=== PATIENT | female | born 1970 | race Caucasian/White ===

== ENCOUNTER 2018-07-10 16:03 | Inpatient (IN) | payer MEDICAID, SELFPAY ==
[2018-07-10] VITALS (11 sets, daily range): BP systolic 137–154; BP diastolic 78–96; PULSE 79–97; RESP 16–20; TEMP 36.6–36.9; O2SAT 94–99; BMI 26.1
--- NOTE | 2018-07-10 16:48 | PCM.HP.STD ---
<Thuan Boston - Last Filed: 07/10/18 16:48> Problem List (1) Alcohol withdrawal Status: Acute (2) Alcoholism Status: Chronic (3) HTN (hypertension) Status: Chronic (4) Hepatitis C Status: Chronic (5) Anxiety Status: Chronic (6) Nicotine abuse Status: Chronic History of Present Illness Date of Admission: 07/10/18 Chief Complaint: alcohol withdrawal The patient is a 48 year old F with pmhx of alcoholism, htn, hepatitis C, nicotine abuse, anxiety, who presents to the hospital medical stabilization program in alcohol withdrawal requesting help with detox. She drinks 15-30 ice beers per day. Last drink was around 4 pm last evening. Withdrawal symptoms currently include, restlessness, anxiety, nausea, diarrhea, hot/cold flashes, skin crawling, visual and auditory hallucinations (seeing clowns hearing trains). Hx of withdrawal seizures, ICU stays during withdrawal. She last went through detox 39 days ago in [place] - started drinking because she was hanging out with the wrong people. She started drinking age 22 after her was murdered. Smokes 1 ppd and requests patch. Denies other drug use. [] Past Medical History Past Medical History (Chronic Problems): Chronic Problems Alcoholism (Chronic) HTN (hypertension) (Chronic) Hepatitis C (Chronic) Anxiety (Chronic) Nicotine abuse (Chronic) Allergies cefaclor [From Ceclor] Allergy (Verified 07/10/18 15:44) swelling/rash Penicillins [PCN] Allergy (Verified 07/10/18 15:44) Rash sulfamethoxazole [From Bactrim] Allergy (Verified 07/10/18 15:44) swelling/rash trimethoprim [From Bactrim] Allergy (Verified 07/10/18 15:44) swelling/rash codeine Adverse Reaction (Verified 07/10/18 15:44) Nausea/Vom/Diarrhea propoxyphene Adverse Reaction (Verified 07/10/18 15:44) Nausea/Vom/Diarrhea Home Medications: Ambulatory Orders Medication Instructions Recorded Clonidine HCl [Catapres] 0.1 mg PO TID 07/10/18 Escitalopram Oxalate [Lexapro] 10 mg PO DAILY 07/10/18 Pantoprazole Sodium [Protonix] 40 mg PO DAILY 07/10/18 Surgical History: appendectomy, cholecystectomy, hysterectomy, rotator cuff repair, - - right wrist Psychiatric History: Anxiety 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 Denies: Chills, Fever, Weight Change HEENT: Denies: Head Aches, Sinus Congestion, Sinus Drainage Cardiovascular: Denies: Chest Pain, Palpitations Respiratory: Denies: Cough, Shortness of breath at rest, Sputum production Gastrointestinal: Reports: Diarrhea, Nausea. Denies: Abdominal Pain, Vomiting Genitourinary: Denies: Dysuria Musculoskeletal: Denies: Joint Pain, Joint Tenderness Skin: Denies: Rash, Wounds Neurological: Reports: Tremor. Denies: Focal weakness, Headaches, Numbness, Tingling Psychiatric: Reports: Anxiety, - - hallucinations auditory and visual. Denies: Depression, Homicidal Ideations, Suicidal Ideations Hematologic/ Lymphatic: Denies: Easy Bruising, Easy Bleeding VTE Information - Inpt Only VTE Present on Admission: No VTE Mechan Device Prophylaxis: None VTE Pharm Prophylaxis ordered?: No Reason prophylaxis not ordered:: Procedure Not Indicated Patient Problems: Active and Suspected Problems Alcohol withdrawal (Acute) - Physical Exam General: Alert, Oriented x3, Cooperative HEENT: Atraumatic, PERRLA, EOMI, Normocephalic Neck: Supple, No JVD, Negative Carotid Bruits Lungs: Clear to auscultation, Normal air movement Cardiovascular: Regular rate, No murmurs Abdomen: Bowel Sounds Present, Soft, Non Tender Extremities: No edema, Capillary Refill Less than 3 Seconds Skin: No rashes, No breakdown Musculoskeletal: No Tenderness to Palpation of Joints or Extremities Neurological: Cranial nerves II-XII grossly intact, - - tremulous, asterixis Psych/Mental Status: Normal Affect, Appropriate, Anxious, Alert and oriented to time, place, person, mood and affect Vital Signs Temp Pulse Resp BP Pulse Ox 98.4 F 97 20 H 154/95 H 99 07/10/18 15:25 07/10/18 15:25 07/10/18 15:25 07/10/18 15:25 07/10/18 15:25 Oxygen Delivery Method Room Air Weight: 161 lb 13.109 oz Body Mass Index (BMI) 26.1 Assessment/Plan All Active Problems Alcohol withdrawal (Acute) 1. Acute alcohol withdrawal - severely tremulous, heavy alcoholism, hx of withdrawal seizures, currently with auditory and visual hallucinations. She will be transferred to PCU, seizure precautions, IV ativan, cardiac monitoring. Check ammonia. Add IV thiamine. Provide MVI, folate. -Drinks 15-30 ice beers per day -alcoholic since 22 after murdered -39 days since last detox in [place] -last drink about 4pm last night -continue home protonix - she states she does not know why she takes this 2. Hx Hepatitis C - mild LFT elevations 3. Nicotine abuse - requests patch. 1 ppd smoker 4. Anxiety - home meds DVT ppx: SCDs This patient was seen by Thuan Boston PA-C under the supervision of Dr. Landrum. <Klarissa Landrum E - Last Filed: 07/10/18 17:19> History of Present Illness The patient is a 48 year old F [] Past Medical History Allergies cefaclor [From Ceclor] Allergy (Verified 07/10/18 15:44) swelling/rash Penicillins [PCN] Allergy (Verified 07/10/18 15:44) Rash sulfamethoxazole [From Bactrim] Allergy (Verified 07/10/18 15:44) swelling/rash trimethoprim [From Bactrim] Allergy (Verified 07/10/18 15:44) swelling/rash codeine Adverse Reaction (Verified 07/10/18 15:44) Nausea/Vom/Diarrhea propoxyphene Adverse Reaction (Verified 07/10/18 15:44) Nausea/Vom/Diarrhea - Physical Exam Vital Signs Temp Pulse Resp BP Pulse Ox 98.4 F 97 20 H 154/95 H 99 07/10/18 15:25 07/10/18 15:25 07/10/18 15:25 07/10/18 15:25 07/10/18 15:25 Oxygen Delivery Method Room Air Weight: 161 lb 13.109 oz Body Mass Index (BMI) 26.1 Assessment/Plan Hospitalist note: I am seeing this patient in conjunction with Thuan Boston. I independently seen and examined the patient. History and physical and laboratory data from the outside facility reviewed and I agree with the above admission and treatment plan. Patient was transferred from [place] [facility] for acute alcohol withdrawal for medical stabilization. Patient drinks anywhere 15-18 beers daily and her last drink was yesterday evening. Her presenting symptoms were restlessness, and anxiety associated with significant hand tremors as well as hot and cold flashes and those symptoms started last night but got worse this morning. She complained of diarrhea, 2-4 times daily, loose stool without blood. She has history of alcohol abuse with history of alcohol withdrawal seizure 2 months ago and she was admitted to the intensive care unit according to the patient for severe alcohol withdrawal and she was in coma according to her. She is not taking any antiseizure medications. She has a history of hypertension and she has been on clonidine. She has history of hepatitis C and according to the patient, she never got treated for it. At this time, patient is very anxious, restless, tremulous. Her blood pressure slightly elevated, no tachycardia, other vitals are stable. Routine blood work from the outside reviewed as below. She is being admitted for severe alcohol withdrawal. - Physical Exam General: Alert, Oriented x3, Cooperative, restless, tremulous. HEENT: Atraumatic, PERRLA, EOMI. Neck: Supple, No JVD, Negative Carotid Bruits, Trachea Midline, Thyroid Normal. Lungs: Clear to auscultation, Normal air movement, No rhonchi, No wheeze, No rales. Cardiovascular: Regular rate, Regular Rhythm, Normal S1, Normal S2, PMI Normal. Abdomen: Bowel Sounds Present, Soft, Non Tender, Non-Distended, No Hepato-splenomegaly. Extremities: No clubbing, No cyanosis, No edema Skin: No rashes, No breakdown Neurological: Neuro grossly intact Laboratory data: CBC: WBC is 5.56, hemoglobin 14.9, platelet count is 1 73,000. Pro time 12.5, INR is 1. BMP: Sodium 140, potassium 3.8, chloride 104, BUN 7, creatinine 0.80, calcium 8.9 mg/dL. LFT: ALT 104, AST 133, alkaline phosphatase 81, lipase 284. Urine drug screen was negative. Blood alcohol level was 74.3. Serum test was negative. Assessment and plan: #1 severe alcohol withdrawal: With past history of alcohol withdrawal seizure in addition to history of admission to ICU because of severe alcohol withdrawal that required sedation. At this time, patient is anxious, restless, tremors. She received 1 dose of Ativan p.o. at [facility] and she mentioned that it did not make any difference. She is slightly hypertensive, heart rate stable. Plan: Admit to PCU, cardiac monitoring, seizure precautions, IV Ativan PRN for seizure, CIWA protocol, IV Ativan as needed, IV thiamine and folic acid supplement, multivitamins, PRN methocarbamol, Bentyl, Catapres, Vistaril, trazodone nightly. #2 hypertension: Blood pressure slightly elevated, continue clonidine, start IV hydralazine PRN. #3 other chronic medical problems: Stable, continue current medications as above. This note was generated with [employer] dictation software. It may contain incorrect words, spelling, and punctuation that were not noted in checking the note before signing. Code Visit Inpatient E&M: 81509 Init Hosp L3
--- NOTE | 2018-07-10 16:53 | HP.PCM_ITS ---
<Thuan Boston - Last Filed: 07/10/18 16:48> Problem List (1) Alcohol withdrawal Status: Acute (2) Alcoholism Status: Chronic (3) HTN (hypertension) Status: Chronic (4) Hepatitis C Status: Chronic (5) Anxiety Status: Chronic (6) Nicotine abuse Status: Chronic History of Present Illness Date of Admission: 07/10/18 Chief Complaint: alcohol withdrawal The patient is a 48 year old F with pmhx of alcoholism, htn, hepatitis C, nicotine abuse, anxiety, who presents to the hospital medical stabilization program in alcohol withdrawal requesting help with detox. She drinks 15-30 ice beers per day. Last drink was around 4 pm last evening. Withdrawal symptoms currently include, restlessness, anxiety, nausea, diarrhea, hot/cold flashes, skin crawling, visual and auditory hallucinations (seeing clowns hearing trains). Hx of withdrawal seizures, ICU stays during withdrawal. She last went through detox 39 days ago in [place] - started drinking because she was hanging out with the wrong people. She started drinking age 22 after her was murdered. Smokes 1 ppd and requests patch. Denies other drug use. [] Past Medical History Past Medical History (Chronic Problems): Chronic Problems Alcoholism (Chronic) HTN (hypertension) (Chronic) Hepatitis C (Chronic) Anxiety (Chronic) Nicotine abuse (Chronic) Allergies cefaclor [From Ceclor] Allergy (Verified 07/10/18 15:44) swelling/rash Penicillins [PCN] Allergy (Verified 07/10/18 15:44) Rash sulfamethoxazole [From Bactrim] Allergy (Verified 07/10/18 15:44) swelling/rash trimethoprim [From Bactrim] Allergy (Verified 07/10/18 15:44) swelling/rash codeine Adverse Reaction (Verified 07/10/18 15:44) Nausea/Vom/Diarrhea propoxyphene Adverse Reaction (Verified 07/10/18 15:44) Nausea/Vom/Diarrhea Home Medications: Ambulatory Orders Medication Instructions Recorded Clonidine HCl [Catapres] 0.1 mg PO TID 07/10/18 Escitalopram Oxalate [Lexapro] 10 mg PO DAILY 07/10/18 Pantoprazole Sodium [Protonix] 40 mg PO DAILY 07/10/18 Surgical History: appendectomy, cholecystectomy, hysterectomy, rotator cuff repair, - - right wrist Psychiatric History: Anxiety 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 Denies: Chills, Fever, Weight Change HEENT: Denies: Head Aches, Sinus Congestion, Sinus Drainage Cardiovascular: Denies: Chest Pain, Palpitations Respiratory: Denies: Cough, Shortness of breath at rest, Sputum production Gastrointestinal: Reports: Diarrhea, Nausea. Denies: Abdominal Pain, Vomiting Genitourinary: Denies: Dysuria Musculoskeletal: Denies: Joint Pain, Joint Tenderness Skin: Denies: Rash, Wounds Neurological: Reports: Tremor. Denies: Focal weakness, Headaches, Numbness, Tingling Psychiatric: Reports: Anxiety, - - hallucinations auditory and visual. Denies: Depression, Homicidal Ideations, Suicidal Ideations Hematologic/ Lymphatic: Denies: Easy Bruising, Easy Bleeding VTE Information - Inpt Only VTE Present on Admission: No VTE Mechan Device Prophylaxis: None VTE Pharm Prophylaxis ordered?: No Reason prophylaxis not ordered:: Procedure Not Indicated Patient Problems: Active and Suspected Problems Alcohol withdrawal (Acute) - Physical Exam General: Alert, Oriented x3, Cooperative HEENT: Atraumatic, PERRLA, EOMI, Normocephalic Neck: Supple, No JVD, Negative Carotid Bruits Lungs: Clear to auscultation, Normal air movement Cardiovascular: Regular rate, No murmurs Abdomen: Bowel Sounds Present, Soft, Non Tender Extremities: No edema, Capillary Refill Less than 3 Seconds Skin: No rashes, No breakdown Musculoskeletal: No Tenderness to Palpation of Joints or Extremities Neurological: Cranial nerves II-XII grossly intact, - - tremulous, asterixis Psych/Mental Status: Normal Affect, Appropriate, Anxious, Alert and oriented to time, place, person, mood and affect Vital Signs Temp Pulse Resp BP Pulse Ox 98.4 F 97 20 H 154/95 H 99 07/10/18 15:25 07/10/18 15:25 07/10/18 15:25 07/10/18 15:25 07/10/18 15:25 Oxygen Delivery Method Room Air Weight: 161 lb 13.109 oz Body Mass Index (BMI) 26.1 Assessment/Plan All Active Problems Alcohol withdrawal (Acute) 1. Acute alcohol withdrawal - severely tremulous, heavy alcoholism, hx of withdrawal seizures, currently with auditory and visual hallucinations. She will be transferred to PCU, seizure precautions, IV ativan, cardiac monitoring. Check ammonia. Add IV thiamine. Provide MVI, folate. -Drinks 15-30 ice beers per day -alcoholic since 22 after murdered -39 days since last detox in [place] -last drink about 4pm last night -continue home protonix - she states she does not know why she takes this 2. Hx Hepatitis C - mild LFT elevations 3. Nicotine abuse - requests patch. 1 ppd smoker 4. Anxiety - home meds DVT ppx: SCDs This patient was seen by Thuan Boston PA-C under the supervision of Dr. Landrum. <Klarissa Landrum E - Last Filed: 07/10/18 17:19> History of Present Illness The patient is a 48 year old F [] Past Medical History Allergies cefaclor [From Ceclor] Allergy (Verified 07/10/18 15:44) swelling/rash Penicillins [PCN] Allergy (Verified 07/10/18 15:44) Rash sulfamethoxazole [From Bactrim] Allergy (Verified 07/10/18 15:44) swelling/rash trimethoprim [From Bactrim] Allergy (Verified 07/10/18 15:44) swelling/rash codeine Adverse Reaction (Verified 07/10/18 15:44) Nausea/Vom/Diarrhea propoxyphene Adverse Reaction (Verified 07/10/18 15:44) Nausea/Vom/Diarrhea - Physical Exam Vital Signs Temp Pulse Resp BP Pulse Ox 98.4 F 97 20 H 154/95 H 99 07/10/18 15:25 07/10/18 15:25 07/10/18 15:25 07/10/18 15:25 07/10/18 15:25 Oxygen Delivery Method Room Air Weight: 161 lb 13.109 oz Body Mass Index (BMI) 26.1 Assessment/Plan Hospitalist note: I am seeing this patient in conjunction with Thuan Boston. I independently seen and examined the patient. History and physical and laboratory data from the outside facility reviewed and I agree with the above admission and treatment plan. Patient was transferred from [place] ER for acute alcohol withdrawal for medical stabilization. Patient drinks anywhere 15-18 beers daily and her last drink was yesterday evening. Her presenting symptoms were restlessness, and anxiety associated with significant hand tremors as well as hot and cold flashes and those symptoms started last night but got worse this morning. She complained of diarrhea, 2-4 times daily, loose stool without blood. She has history of alcohol abuse with history of alcohol withdrawal seizure 2 months ago and she was admitted to the intensive care unit according to the patient for severe alcohol withdrawal and she was in coma according to her. She is not taking any antiseizure medications. She has a history of hypertension and she has been on clonidine. She has history of hepatitis C and according to the patient, she never got treated for it. At this time, patient is very anxious, restless, tremulous. Her blood pressure slightly elevated, no tachycardia, other vitals are stable. Routine blood work from the outside reviewed as below. She is being admitted for severe alcohol withdrawal. - Physical Exam General: Alert, Oriented x3, Cooperative, restless, tremulous. HEENT: Atraumatic, PERRLA, EOMI. Neck: Supple, No JVD, Negative Carotid Bruits, Trachea Midline, Thyroid Normal. Lungs: Clear to auscultation, Normal air movement, No rhonchi, No wheeze, No rales. Cardiovascular: Regular rate, Regular Rhythm, Normal S1, Normal S2, PMI Normal. Abdomen: Bowel Sounds Present, Soft, Non Tender, Non-Distended, No Hepato- splenomegaly. Extremities: No clubbing, No cyanosis, No edema Skin: No rashes, No breakdown Neurological: Neuro grossly intact Laboratory data: CBC: WBC is 5.56, hemoglobin 14.9, platelet count is 1 73,000. Pro time 12.5, INR is 1. BMP: Sodium 140, potassium 3.8, chloride 104, BUN 7, creatinine 0.80, calcium 8.9 mg/dL. LFT: ALT 104, AST 133, alkaline phosphatase 81, lipase 284. Urine drug screen was negative. Blood alcohol level was 74.3. Serum test was negative. Assessment and plan: #1 severe alcohol withdrawal: With past history of alcohol withdrawal seizure in addition to history of admission to ICU because of severe alcohol withdrawal that required sedation. At this time, patient is anxious, restless, tremors. She received 1 dose of Ativan p.o. at [facility] and she mentioned that it did not make any difference. She is slightly hypertensive, heart rate stable. Plan: Admit to PCU, cardiac monitoring, seizure precautions, IV Ativan PRN for seizure, CIWA protocol, IV Ativan as needed, IV thiamine and folic acid supplement, multivitamins, PRN methocarbamol, Bentyl, Catapres, Vistaril, trazodone nightly. #2 hypertension: Blood pressure slightly elevated, continue clonidine, start IV hydralazine PRN. #3 other chronic medical problems: Stable, continue current medications as above. This note was generated with [employer] dictation software. It may contain incorrect words, spelling, and punctuation that were not noted in checking the note before signing. Code Visit Inpatient E&M: 96858 Init Hosp L3
[2018-07-10] MEDS: cloNIDine HCl 0.1 MG Tablet PO ×2 (16:57→23:03)
[2018-07-10] MEDS: LORazepam 1 MG Tablet PO (16:57)
[2018-07-10] MEDS: Methocarbamol 750 MG Tablet PO (16:57)
[2018-07-10] MEDS: Dicyclomine 10 MG Capsule 20 MG PO (16:57)
[2018-07-10] MEDS: chlordiazePOXIDE 25 MG Capsule 50 MG PO (17:06)
--- NOTE | 2018-07-10 18:12 | NURSING ---
Report given to Tania RON in PCU at this time.
[2018-07-10] MEDS: LORazepam 2 MG/ML Syringe IV ×3 (18:29→23:51)
[2018-07-10] MEDS: 0.9% NaCl Peripheral Flush Adult/Peds IV ×6 (21:20→23:54)
[2018-07-10] MEDS: traZODone 50 MG Tablet PO (23:03)
[2018-07-11] VITALS (19 sets, daily range): BP systolic 133–153; BP diastolic 87–98; PULSE 73–98; RESP 16–20; TEMP 36.4–36.8; O2SAT 93–98
[2018-07-11] MEDS: 0.9% NaCl Peripheral Flush Adult/Peds IV ×10 (01:50→20:17)
[2018-07-11] MEDS: LORazepam 2 MG/ML Syringe IV ×4 (01:50→20:17)
--- NOTE | 2018-07-11 07:00 | NURSING ---
pt sleeping w/eyes close, respers even/easy. not roused at this time
[2018-07-11] MEDS: cloNIDine HCl 0.1 MG Tablet PO ×3 (07:01→21:36)
--- NOTE | 2018-07-11 07:59 | PCM.PROGNOTE ---
Patient Problems: Active and Suspected Problems Alcohol withdrawal (Acute) Subjective: Chief complaint: Follow-up after admission for acute severe alcohol withdrawal. Patient seen and examined. No acute events overnight. She reported mild improvement of her symptoms, shakiness and tremors slightly improved but she thinks that she is still having significant symptoms of withdrawal. Her vital signs are stable. - Physical Exam General: Alert, Oriented x3, Cooperative, - - Minimally anxious, tremulous, improved compared to yesterday. HEENT: Atraumatic, PERRLA, EOMI, Normocephalic Oral: Moist Mucosa, No Gingival or Mucosal Lesions/ Ulcerations Neck: Supple, No JVD, Negative Carotid Bruits, Trachea Midline, Thyroid Normal Size and Texture Lungs: Clear to auscultation, Normal air movement, No rhonchi, No wheeze, No rales Cardiovascular: Regular rate, Regular Rhythm, Normal S1, Normal S2, PMI Normal Abdomen: Bowel Sounds Present, Soft, Non Tender, Non-Distended, No Hepato-splenomegaly Extremities: No clubbing, No cyanosis, No edema Skin: No rashes, No breakdown Lymphatic: No Cervical, Supraclavicular, or Inguinal Adenopathy Neurological: Cranial nerves II-XII grossly intact, Neuro grossly intact Psych/Mental Status: Normal Affect, Appropriate, Anxious, Alert and oriented to time, place, person, mood and affect Vital Signs Temp Pulse Resp BP Pulse Ox 97.7 F L 73 16 151/94 H 97 07/11/18 06:53 07/11/18 07:15 07/11/18 06:53 07/11/18 06:53 07/11/18 06:50 Oxygen Delivery Method Room Air Weight: 161 lb 13.109 oz Body Mass Index (BMI) 26.1 Intake and Output for Last 24 Hours 07/09/18 07/10/18 07/11/18 23:59 23:59 23:59 Intake Total 360 / 360 Balance 360 / 360 Laboratory Tests Past 24 Hrs 07/10/18 17:33 Ammonia 31.0 Medical Necessity - Tobacco Use Smoking Status: Current every day smoker Tobacco Use: Cigarettes Assessment/Plan All Active Problems Alcohol withdrawal (Acute) This is a 48 years old female patient directly admitted from outside facility for acute severe alcohol withdrawal. #1 severe alcohol withdrawal: With past history of alcohol withdrawal seizure in addition to history of admission to ICU because of severe alcohol withdrawal that required sedation. She is on IV and p.o. Ativan according to see her protocol, on thiamine and folic acid supplement. Routine blood work that was done at the outside facility yesterday reviewed and was unremarkable. Blood alcohol level was 47.3. Urine drug screen was negative. Liver transaminases were slightly elevated secondary to chronic hepatitis C. Also, she is on PRN Catapres, Bentyl, Vistaril, Zofran and trazodone. Patient reported mild improvement of her symptoms. Plan to continue same treatment. #2 hypertension: Blood pressure still in the range of 140s to 150s, continue clonidine, continue IV hydralazine PRN. #3 chronic hepatitis C: LFT revealed mild elevation of liver transaminases. Patient will need follow-up with infectious disease as outpatient. #4 tobacco abuse: Continue NicoDerm patch. #5 anxiety: Continue Lexapro. #6 DVT prophylaxis: Low risk patient, no prophylaxis indicated. This note was generated with [employer] dictation software. It may contain incorrect words, spelling, and punctuation that were not noted in checking the note before signing. Code Visit Inpatient E&M: 90084 Subs Hosp L2
--- NOTE | 2018-07-11 08:04 | PN_ITS ---
Patient Problems: Active and Suspected Problems Alcohol withdrawal (Acute) Subjective: Chief complaint: Follow-up after admission for acute severe alcohol withdrawal. Patient seen and examined. No acute events overnight. She reported mild improvement of her symptoms, shakiness and tremors slightly improved but she thinks that she is still having significant symptoms of withdrawal. Her vital signs are stable. - Physical Exam General: Alert, Oriented x3, Cooperative, - - Minimally anxious, tremulous, improved compared to yesterday. HEENT: Atraumatic, PERRLA, EOMI, Normocephalic Oral: Moist Mucosa, No Gingival or Mucosal Lesions/ Ulcerations Neck: Supple, No JVD, Negative Carotid Bruits, Trachea Midline, Thyroid Normal Size and Texture Lungs: Clear to auscultation, Normal air movement, No rhonchi, No wheeze, No rales Cardiovascular: Regular rate, Regular Rhythm, Normal S1, Normal S2, PMI Normal Abdomen: Bowel Sounds Present, Soft, Non Tender, Non-Distended, No Hepato- splenomegaly Extremities: No clubbing, No cyanosis, No edema Skin: No rashes, No breakdown Lymphatic: No Cervical, Supraclavicular, or Inguinal Adenopathy Neurological: Cranial nerves II-XII grossly intact, Neuro grossly intact Psych/Mental Status: Normal Affect, Appropriate, Anxious, Alert and oriented to time, place, person, mood and affect Vital Signs Temp Pulse Resp BP Pulse Ox 97.7 F L 73 16 151/94 H 97 07/11/18 06:53 07/11/18 07:15 07/11/18 06:53 07/11/18 06:53 07/11/18 06:50 Oxygen Delivery Method Room Air Weight: 161 lb 13.109 oz Body Mass Index (BMI) 26.1 Intake and Output for Last 24 Hours 07/09/18 07/10/18 07/11/18 23:59 23:59 23:59 Intake Total 360 / 360 Balance 360 / 360 Laboratory Tests Past 24 Hrs 07/10/18 17:33 Ammonia 31.0 Medical Necessity - Tobacco Use Smoking Status: Current every day smoker Tobacco Use: Cigarettes Assessment/Plan All Active Problems Alcohol withdrawal (Acute) This is a 48 years old female patient directly admitted from outside facility for acute severe alcohol withdrawal. #1 severe alcohol withdrawal: With past history of alcohol withdrawal seizure in addition to history of admission to ICU because of severe alcohol withdrawal that required sedation. She is on IV and p.o. Ativan according to see her protocol, on thiamine and folic acid supplement. Routine blood work that was done at the outside facility yesterday reviewed and was unremarkable. Blood al cohol level was 47.3. Urine drug screen was negative. Liver transaminases were slightly elevated secondary to chronic hepatitis C. Also, she is on PRN Catapres, Bentyl, Vistaril, Zofran and trazodone. Patient reported mild improvement of her symptoms. Plan to continue same treatment. #2 hypertension: Blood pressure still in the range of 140s to 150s, continue clonidine, continue IV hydralazine PRN. #3 chronic hepatitis C: LFT revealed mild elevation of liver transaminases. Patient will need follow-up with infectious disease as outpatient. #4 tobacco abuse: Continue NicoDerm patch. #5 anxiety: Continue Lexapro. #6 DVT prophylaxis: Low risk patient, no prophylaxis indicated. This note was generated with [employer] dictation software. It may contain incorrect words, spelling, and punctuation that were not noted in checking the note before signing. Code Visit Inpatient E&M: 11380 Subs Hosp L2
[2018-07-11] MEDS: Acetaminophen 500 MG Tablet PO ×3 (08:33→20:16)
[2018-07-11] MEDS: Multivitamins,Therapeutic Tablet 1 TABLET PO (08:33)
[2018-07-11] MEDS: Methocarbamol 750 MG Tablet PO ×2 (10:15→16:04)
[2018-07-11] MEDS: hydrOXYzine PAM 25 MG Capsule 50 MG PO ×2 (10:15→17:58)
[2018-07-11] MEDS: Escitalopram Oxalate 10 MG Tablet PO (10:15)
[2018-07-11] MEDS: Pantoprazole Sodium 40 MG Tablet PO (10:15)
[2018-07-11] MEDS: LORazepam 1 MG Tablet 2 MG PO ×3 (11:59→22:56)
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
[2018-07-11] MEDS: Ondansetron ODT 4 MG Tablet PO (20:17)
[2018-07-11] MEDS: traZODone 50 MG Tablet PO (21:36)
[2018-07-12] VITALS (12 sets, daily range): BP systolic 114–154; BP diastolic 69–91; PULSE 70–94; RESP 16–20; TEMP 36.4–36.6; O2SAT 93–96
[2018-07-12] MEDS: Acetaminophen 500 MG Tablet PO ×3 (02:16→10:53)
[2018-07-12] MEDS: LORazepam 1 MG Tablet 2 MG PO ×2 (02:16→06:11)
[2018-07-12] MEDS: Methocarbamol 750 MG Tablet PO (02:16)
[2018-07-12] MEDS: Ondansetron ODT 4 MG Tablet PO (02:17)
[2018-07-12] MEDS: hydrOXYzine PAM 25 MG Capsule 50 MG PO ×3 (04:33→18:10)
[2018-07-12] MEDS: Dicyclomine 10 MG Capsule 20 MG PO (04:33)
[2018-07-12] MEDS: cloNIDine HCl 0.1 MG Tablet PO ×2 (05:21→22:32)
[2018-07-12] MEDS: 0.9% NaCl Peripheral Flush Adult/Peds IV (06:14)
--- NOTE | 2018-07-12 07:46 | NURSING ---
Patient removed own IV during night- unable to obtain new site. Pt removed tele and refuses to allow staff to reapply at shift change. Pt set off bed alarm x2 within 10 minutes- telling staff she was going to step outside to smoke. Educated on policy regarding leaving the unit, which is a AMA discharge. Pt verbalized understanding. Pt returned to bed. Pt found walking in hallway after doctor in to see her. Notified this RN that she was leaving and that the doctor discharged her. Notfied pt that this was not the case. Pt would not listen to this RN and ripped off tape and nicotene patch, becoming definant as this RN attempted to tell pt that she was not d/c'ed. Dr. Willett notified and went in with this RN to see pt. Dr. Willett notified pt- and pt then compliant and allowed this RN to assist her with putting gown back on and returning to bed to eat breakfast. Dr. Landrum gave new order to decrease amount of ativan. Notified Dr. Landrum that pt has no IV access- ativan ordered PO. Pt requested that she have sleeping pill at night. Dr. Landrum ordered same. Pt able to answer questions asked- a&ox3- but will then speak nonsense, asking this RN how long she has worked at [employer] and how she could apply. Pt does not appear to be thinking clearly - confirmed by what pt. is verbalizing.
--- NOTE | 2018-07-12 07:54 | PCM.PROGNOTE ---
Patient Problems: Active and Suspected Problems Alcohol withdrawal (Acute) Subjective: Chief complaint: Follow-up after admission for acute severe alcohol withdrawal. Patient seen and examined. No acute events overnight. This morning, patient seemed sleepy, confused and probably overmedicated with Ativan. She has no more shakiness or and tremors. Her vital signs are stable. - Physical Exam General: Alert, Cooperative, No apparent distress, - - Minimally sleepy HEENT: Atraumatic, PERRLA, EOMI Oral: Moist Mucosa, No Gingival or Mucosal Lesions/ Ulcerations Neck: Supple, No JVD, Negative Carotid Bruits, Trachea Midline, Thyroid Normal Size and Texture Lungs: Clear to auscultation, Normal air movement, No rhonchi, No wheeze, No rales Cardiovascular: Regular rate, Regular Rhythm, Normal S1, Normal S2, PMI Normal Abdomen: Bowel Sounds Present, Soft, Non Tender, Non-Distended, No Hepato-splenomegaly Extremities: No clubbing, No cyanosis, No edema Skin: No rashes, No breakdown Lymphatic: No Cervical, Supraclavicular, or Inguinal Adenopathy Neurological: Cranial nerves II-XII grossly intact, Neuro grossly intact Psych/Mental Status: Normal Affect, Appropriate Vital Signs Temp Pulse Resp BP Pulse Ox 97.9 F 70 18 148/91 H 96 07/12/18 06:00 07/12/18 06:00 07/12/18 06:00 07/12/18 06:00 07/12/18 06:00 Oxygen Delivery Method Room Air Weight: 161 lb 13.109 oz Body Mass Index (BMI) 26.1 Intake and Output for Last 24 Hours 07/10/18 07/11/18 07/12/18 23:59 23:59 23:59 Intake Total 1983 540 / 540 Balance 1983 540 / 540 Medical Necessity - Tobacco Use Smoking Status: Current every day smoker Tobacco Use: Cigarettes Assessment/Plan All Active Problems Alcohol withdrawal (Acute) This is a 48 years old female patient directly admitted from outside facility for acute severe alcohol withdrawal. #1 severe alcohol withdrawal: She is on IV and p.o. Ativan as needed as per protocol as well as thiamine, folic acid and multivitamin supplement. Today, patient seemed to be overmedicated with Ativan. Vital signs are stable. She has no more obvious shakiness or hand tremors. Routine blood work that was done at the outside facility upon admission reviewed and was unremarkable. Blood alcohol level was 47.3. Urine drug screen was negative. Liver transaminases were slightly elevated secondary to chronic hepatitis C. plan: Decrease Ativan down to 1 mg p.o. nightly 2 hours as needed, start Ambien as needed for insomnia, continue other treatments. #2 hypertension: Blood pressure s under better control, continue clonidine, continue IV hydralazine PRN. #3 chronic hepatitis C: LFT revealed mild elevation of liver transaminases. Patient will need follow-up with infectious disease as outpatient. #4 tobacco abuse: Continue NicoDerm patch. #5 anxiety: Continue Lexapro. #6 DVT prophylaxis: Low risk patient, no prophylaxis indicated. This note was generated with [employer] dictation software. It may contain incorrect words, spelling, and punctuation that were not noted in checking the note before signing. Code Visit Inpatient E&M: 07723 Subs Hosp L2
--- NOTE | 2018-07-12 07:58 | PN_ITS ---
Patient Problems: Active and Suspected Problems Alcohol withdrawal (Acute) Subjective: Chief complaint: Follow-up after admission for acute severe alcohol withdrawal. Patient seen and examined. No acute events overnight. This morning, patient seemed sleepy, confused and probably overmedicated with Ativan. She has no more shakiness or and tremors. Her vital signs are stable. - Physical Exam General: Alert, Cooperative, No apparent distress, - - Minimally sleepy HEENT: Atraumatic, PERRLA, EOMI Oral: Moist Mucosa, No Gingival or Mucosal Lesions/ Ulcerations Neck: Supple, No JVD, Negative Carotid Bruits, Trachea Midline, Thyroid Normal Size and Texture Lungs: Clear to auscultation, Normal air movement, No rhonchi, No wheeze, No rales Cardiovascular: Regular rate, Regular Rhythm, Normal S1, Normal S2, PMI Normal Abdomen: Bowel Sounds Present, Soft, Non Tender, Non-Distended, No Hepato- splenomegaly Extremities: No clubbing, No cyanosis, No edema Skin: No rashes, No breakdown Lymphatic: No Cervical, Supraclavicular, or Inguinal Adenopathy Neurological: Cranial nerves II-XII grossly intact, Neuro grossly intact Psych/Mental Status: Normal Affect, Appropriate Vital Signs Temp Pulse Resp BP Pulse Ox 97.9 F 70 18 148/91 H 96 07/12/18 06:00 07/12/18 06:00 07/12/18 06:00 07/12/18 06:00 07/12/18 06:00 Oxygen Delivery Method Room Air Weight: 161 lb 13.109 oz Body Mass Index (BMI) 26.1 Intake and Output for Last 24 Hours 07/10/18 07/11/18 07/12/18 23:59 23:59 23:59 Intake Total 1983 540 / 540 Balance 1983 540 / 540 Medical Necessity - Tobacco Use Smoking Status: Current every day smoker Tobacco Use: Cigarettes Assessment/Plan All Active Problems Alcohol withdrawal (Acute) This is a 48 years old female patient directly admitted from outside facility for acute severe alcohol withdrawal. #1 severe alcohol withdrawal: She is on IV and p.o. Ativan as needed as per protocol as well as thiamine, folic acid and multivitamin supplement. Today, patient seemed to be overmedicated with Ativan. Vital signs are stable. She has no more obvious shakiness or hand tremors. Routine blood work that was done at the outside facility upon admission reviewed and was unremarkable. Blood alcohol level was 47.3. Urine drug screen was negative. Liver transaminases were slightly elevated secondary to chronic hepatitis C. plan: Decrease Ativan down to 1 mg p.o. nightly 2 hours as needed, start Ambien as needed for insomnia, continue other treatments. #2 hypertension: Blood pressure s under better control, continue clonidine, continue IV hydralazine PRN. #3 chronic hepatitis C: LFT revealed mild elevation of liver transaminases. Patient will need follow-up with infectious disease as outpatient. #4 tobacco abuse: Continue NicoDerm patch. #5 anxiety: Continue Lexapro. #6 DVT prophylaxis: Low risk patient, no prophylaxis indicated. This note was generated with [employer] dictation software. It may contain incorrect words, spelling, and punctuation that were not noted in checking the note before signing. Code Visit Inpatient E&M: 28008 Subs Hosp L2
[2018-07-12] MEDS: Escitalopram Oxalate 10 MG Tablet PO (10:47)
[2018-07-12] MEDS: Pantoprazole Sodium 40 MG Tablet PO (10:47)
[2018-07-12] MEDS: Multivitamins,Therapeutic Tablet 1 TABLET PO (10:47)
--- NOTE | 2018-07-12 13:26 | NEWVISION ---
pt out of bed and set off bed exit alarm, pt states she wants to do this at home, don't you think it's unfair how i got here-verbalized to pt that she was agreeable to come to [facility] for alcohol withdrawal-she asks where did my 2 friends go?-although staff has not seen any visitors in pt room today-pt assisted back to bed and bed exit set-encouarged pt to do deep breathing exercises and try to close eyes and relax-she does close her eyes and sleeps intermitently-nicolette she wakes, she is forgetful about what was recently discussed about safety and coming here for withdrawal
[2018-07-12] MEDS: LORazepam 1 MG Tablet PO ×4 (14:18→22:32)
[2018-07-12] MEDS: Folic Acid 1 MG Tablet PO (16:58)
[2018-07-12] MEDS: Thiamine Hydrochloride 100 MG Tablet 200 MG PO (16:58)
--- NOTE | 2018-07-12 18:53 | NURSING ---
Pt refused tele this shift-- doctor notified. Pt states, the rest of my body is falling apart, but my heart is fine. I do not need that.
[2018-07-12] MEDS: traZODone 50 MG Tablet PO (22:32)
[2018-07-13] VITALS (15 sets, daily range): BP systolic 97–136; BP diastolic 69–94; PULSE 74–90; RESP 12–18; TEMP 36.4–36.9; O2SAT 93–97; BMI 26.1
[2018-07-13] MEDS: LORazepam 1 MG Tablet PO ×8 (01:20→22:19)
[2018-07-13] MEDS: hydrOXYzine PAM 25 MG Capsule 50 MG PO (02:07)
[2018-07-13] MEDS: Folic Acid 1 MG Tablet PO (07:43)
[2018-07-13] MEDS: Multivitamins,Therapeutic Tablet 1 TABLET PO (07:44)
[2018-07-13] MEDS: Escitalopram Oxalate 10 MG Tablet PO (07:44)
[2018-07-13] MEDS: Thiamine Hydrochloride 100 MG Tablet 200 MG PO (07:44)
[2018-07-13] MEDS: Pantoprazole Sodium 40 MG Tablet PO (07:45)
--- NOTE | 2018-07-13 11:52 | PN_ITS ---
Patient Problems: Active and Suspected Problems Alcohol withdrawal (Acute) Subjective: Patient with continued hallucinations, tremors improved but still extremely confused. Patient only on Ativan, no IV access. Discussed with staff and given ongoing elevated C was scores at least 14 or above patient initiated on Librium taper although dosing decreased given patient easily sedate status. Patient denies fevers, chills, nausea, emesis, abdominal pain, chest pain or dyspnea. Objective: Physical Examination: General: Patient initially sleeping, awakens with some effort, once more alert able to answer some orientation questions but has had active ongoing hallucinations, specifically noting that she was seeing her mother who has been , remains cooperative, seated upright in bed in no apparent distress. Skin: normal color, turgor, no icterus, cyanosis. HEENT: AT/NC, EOMI, PERRLA, mildly dry MM. Lungs: CTA bilaterally, moderate effort, moderate decrease BL bases, no rales, ronchi or wheezing. Heart: Regular rate and rhythm; no gallop, rub audible. Abdomen: soft, NTTP, ND, normal BS. Extremities: no cyanosis, clubbing, or edema. Neurological: Patient initially sleeping, awakens with some effort, once more alert able to answer some orientation questions but has had active ongoing [place] llucinations, specifically noting that she was seeing her mother who has been , remains cooperative, seated upright in bed in no apparent distress, oriented x 3/4; cognitive function not baseline intact; pupils equally reactive to light and accomodation; cranial nerves II-XII grossly normal, moving all 4 extremities, no focal deficits, strength moderately globally decreased secondary to ongoing alcohol withdrawal symptoms. Psychiatric: affect appears flat, no acute evidence of depressive or anxiety feelings. Vitals/I&O's: Vital Signs Temp Pulse Resp BP Pulse Ox 97.8 F 89 12 135/77 H 94 07/13/18 09:46 07/13/18 09:46 07/13/18 09:46 07/13/18 09:46 07/13/18 09:46 Oxygen Delivery Method Room Air Weight: 161 lb 13.109 oz Body Mass Index (BMI) 26.1 Intake and Output for Last 24 Hours 07/11/18 07/12/18 07/13/18 23:59 23:59 23:59 Intake Total 1983 1640 / 1640 500 / 500 Balance 1983 1640 / 1640 500 / 500 Current Medications Acetaminophen (Tylenol) 500 mg PO Q4H PRN PRN PRN Reason: Temp > 100.4 F Last Admin: 07/12/18 10:53 Dose: 500 mg Clonidine (Catapres) 0.1 mg PO TID [facility] Last Admin: 07/13/18 06:53 Dose: Not Given Dicyclomine HCl (Bentyl) 20 mg PO Q6H PRN PRN PRN Reason: abdominal discomfort Last Admin: 07/12/18 04:33 Dose: 20 mg Escitalopram Oxalate (Lexapro) 10 mg PO DAILY [facility] Last Admin: 07/13/18 07:44 Dose: 10 mg Folic Acid (Folic Acid) 1 mg PO DAILY@0800 [facility] Last Admin: 07/13/18 07:43 Dose: 1 mg Hydroxyzine Pamoate (Vistaril Pamoate Capsule) 50 mg PO Q6H PRN PRN PRN Reason: Mild Anxiety (score 1/3) Last Admin: 07/13/18 02:07 Dose: 50 mg Lorazepam (Ativan) 1 mg PO Q2H PRN PRN PRN Reason: CIWA score > 8 but <15 Last Admin: 07/13/18 09:49 Dose: 1 mg Methocarbamol (Methocarbamol) 750 mg PO Q6H PRN PRN PRN Reason: Muscle Aches Last Admin: 07/12/18 02:16 Dose: 750 mg [facility] ([facility]itamin) [facility] Last Admin: 07/13/18 07:44 Dose: 1 tablet Nicotine (Nicoderm Cq (Pbkc)) 21 mg TRANSDERM. DAILY [facility] Last Admin: 07/13/18 07:44 Dose: 21 mg Ondansetron HCl (Zofran Odt) 4 mg PO Q6H PRN PRN PRN Reason: NAUSEA Last Admin: 07/12/18 02:17 Dose: 4 mg Pantoprazole Sodium (Protonix) 40 mg PO DAILY [facility] Last Admin: 07/13/18 07:45 Dose: 40 mg Sodium Chloride () 5 - 15 ml IV UD PRN PRN Reason: SALINE FLUSH Last Admin: 07/12/18 06:14 Dose: 10 ml Thiamine HCl (Vitamin B1) [facility] Last Admin: 07/13/18 07:44 Dose: 200 mg Trazodone HCl (Desyrel) 50 mg PO QHS [facility] Last Admin: 07/12/18 22:32 Dose: 50 mg Zolpidem Tartrate (Ambien (Generic)) 5 mg PO QHS PRN PRN PRN Reason: INSOMNIA Medical Necessity - Tobacco Use Smoking Status: Current every day smoker Tobacco Use: Cigarettes Assessment/Plan All Active Problems Alcohol withdrawal (Acute) The patient is a 48 y/o F w/ PMHx: Tobacco use, HTN, Chronic Hepatitis C, Anxiety and Depression, Chronic EtOH Abuse who presents to the [facility] on 07/10[facility]18 as direct admission for acute EtOH withdrawal. (1) Acute EtOH Withdrawal: Admitted to PCU, labs per OSH, given ongoing hallucinations, planned CT head to be cautious given EtOH abuse and possibility of unknown fall, will obtain CBC, CMP, mag and phos now, will initiate and continue on [facility] service protocol with taper course of librium instead of only CIWA oral ativan, as Catapres, Bentyl, Vistaril, IV fluids, IV antiemetics, Tylenol as needed for pain. [facility] consulted, as following completion of taper nearing will need plan for transition to next level of rehabilitation care. Maintain on CIWA protocol. (2) History of Hepatitis C, Chronic: Patient currently not candidate for hep C treatment currently as needs to be clean, sober x 6 months, documented attendance NA or AA meetings, counseling and ongoing negative drug screens. Once appropriate GI, ID to initiate. (3) Tobacco Abuse: Encouraged cessation, inpatient consultation per RT, NR if desired. (4) Hypertension: Continue home regimen including clonidine although given history alternate agent would be perhaps more appropriate, PRN hydralazine. (5) Anxiety and Depression: Continue home Lexapro regimen. (6) GERD: PPI. (7) DVT Prophylaxis: SCDs, lovenox. Code Visit Inpatient E&M: 04023 Subs Hosp L3
--- NOTE | 2018-07-13 11:55 | CASEMGMT ---
SW called [facility] and spoke with Laan Villa. They will attempt to talk with patient when able. Viviana COLEMAN MSW
--- NOTE | 2018-07-13 11:57 | NURSING ---
Dr. Shannon made aware pt does not have IV site at this time.
[2018-07-13] MEDS: cloNIDine HCl 0.1 MG Tablet PO ×2 (12:17→22:18)
[2018-07-13] MEDS: chlordiazePOXIDE 25 MG Capsule PO ×3 (12:19→23:36)
--- NOTE | 2018-07-13 13:56 | CT_ITS ---
STUDY: CT BRAIN WITHOUT CONTRAST REASON FOR EXAM: Female, 48 years old. Memory loss. Hallucinations. RADIATION DOSAGE (If Supplied By Facility): CTDIvol = ( 60.81 ) mGy, DLP = ( 998.67 ) mGycm TECHNIQUE: Transaxial CT imaging of the brain was performed without administration of intravenous contrast material. Individualized dose optimization techniques were used for this CT. COMPARISON: No relevant priors. FINDINGS: Normal soft tissue structures. Normal calvarium. Normal size ventricles and extra-axial spaces for the patient's age. Normal white matter tracts of the cerebral hemispheres. Questionable 6.4 mm lacunar infarct in the posterior left thalamus. Normal brainstem. Normal cerebellum. There is no intracranial hemorrhage. There are no findings of an acute ischemic infarction. Normal visualized paranasal sinuses. CT/Brain/Head without Contrast IMPRESSION: Possible 6.4 mm lacunar infarct in the posterior left thalamus. Electronically Signed: Drake Mckinnon, at 14:53 EDT , Service support ,
--- NOTE | 2018-07-13 14:08 | CHAPLAIN ---
Type of Pastoral Visit _x__ Initial Visit ___ Follow-up Visit ___ On-call Visit ___ General Patient Visit ___ Spiritual Assessment ___ Family Conference ___ Bereavement ___ Rapid Response ___ Code Blue ___ Other (describe below) Pastoral Care Referral From _x__ Patient ___ Family ___ Nurse ___ Physician ___ Staff Development Nurse ___ Clinical Services Assistant ___ Other (describe below) Sacrament/Intervention _x__ Active listening ___ Anointing ___ Islam ___ Bereavement ___ Communion ___ Sarita exploration ___ ___ Life review _x__ Prayer ___ Reconciliation ___ Sacrament of Sick _x__ Supportive presence ___ Wedding ___ Other (describe below) Pastoral Comments visit is brief but patient requests prayer support; pt repeats I just want to get my life back several times; pt says that she has no family or friend support; pt says one son lives in area but he doesn't care; another child lives out of state according to pt; pt also states that she has no food at home; pt says I've got to quit or I am going to ; pt says that she is not feeling well and would like to rest; visit ended
[2018-07-13 14:23] LABS: Absolute Lymphocyte Count 1.49 X10^3/ul (0.83-4.51); Absolute Neutrophil Count 2.4 X10^3/uL (2.0-7.7); Basophil# 0.05 X10^3/uL; Basophil% 1.1 % (0-1); Eosinophil# 0.16 X10^3/uL; Eosinophils% 3.4 % (0-5); Hematocrit 43.4 % (37-47); Hemoglobin 14.8 g/dl (12.0-15.0); Lymphocyte # 1.49 X10^3/ul (4.0); Lymphocyte % 31.8 % (19-41); Mean Corp Hgb Conc 34.1 g/gl (32-36); Mean Corpuscular Hgb 32.7 pg (27.0-32.0); Mean Corpuscular Volume 95.8 fL (81-99); Monocyte% 12.8 % (0-10); Neutrophil # 2.36 X10^3/uL (2.7-7.7); Neutrophil % 50.5 % (47-70); Platelet Count 170 K/mm3 (150-450); RBC Distribution Width CV 12.5 % (11.6-14.6); RBC Distribution Width SD 41.9 fl (35.1-43.9); Red Blood Count 4.53 M/mm3 (4.2-5.4); White Blood Count 4.7 K/mm3 (4.4-11.0)
[2018-07-13 14:28] LABS: POSITIVE COUNT NO; POSITIVE DIFFERENTIAL NO; POSITIVE MORPHOLOGY NO
--- NOTE | 2018-07-13 14:35 | CASEMGMT ---
Patient asked to talk with BURKE. She said she has a court hearing tomorrow at 9am. She needs someone to notify the court and her criminal defense attorney. The hearing is at [facility] [address] with Medical Record Libr[employer] Teacher Juan Ballard. Her criminal defense attorney is Jaida Mendoza. BURKE located phone numbers for [facility] [address] ([phone]) and Jaida ([phone]). BURKE called [facility] [address] and left a message with Medical Record Libr[employer] Teacher Nellie' secretary to the vice president. BURKE called Jaida's office and BURKE was asked to fax a letter verifying patient is in the hospital. ([phone]). BURKE faxed letter to [employer] Fl[employer]her Jaida Mendoza. Viviana BARKER
--- NOTE | 2018-07-13 14:38 | NEWVISION ---
Tera Delcid attempted to see patient twice. Once patient returns from CT she is to call [facility] office at her convenience to discuss after care options. A note was left for patient at her bedside at nurse updated.
[2018-07-13 14:41] LABS: ALB/GLOB Ratio 0.7 RATIO (0.9-2.4); AST(SGOT) 79 U/L (15-37); Alanine Aminotransfer ALT/SGPT 76 U/L (13-56); Albumin, Serum 3.3 g/dL (3.2-5.0); Alkaline Phosphatase 69 U/L (45-117); Anion Gap 7 (5-15); BUN 12 mg/dL (7-18); BUN/Creat Ratio 12.6 RATIO (10-20); Calcium,Total 9.1 mg/dL (8.5-10.1); Chloride 105 mmol/L (98-107); Creatinine, Serum 0.95 mg/dL (0.55-1.02); EST Glomerular Filtration Rate 66 mL/min (>60); Est Glom Filt Rate - Afr Amer 80 mL/min (>60); Globulin 4.8 g/dL (2.2-4.2); Glucose 115 mg/dL (74-106); Phosphorus 4.8 mg/dL (2.5-4.9); Potassium 4.2 mmol/L (3.5-5.1); Protein, Total 8.1 g/dL (6.4-8.2); Sodium Level 138 mmol/L (136-145)
--- NOTE | 2018-07-13 15:08 | MRI_ITS ---
STUDY: MRA OF THE HEAD WITHOUT CONTRAST REASON FOR EXAM: Female, 48 years old. CVA TECHNIQUE: 3-D [id number] (TOF) imaging was performed with MIPs. The study was performed unenhanced. COMPARISON: None. FINDINGS: Normal bilateral petrous carotid arteries. Normal right cavernous carotid artery with a normal supraclinoid bifurcation. Normal left cavernous carotid artery with a normal supraclinoid bifurcation. Normal right A1 segments of the anterior cerebral artery. Normal left A1 segments of the anterior cerebral artery. Anterior communicating artery not visualized consistent with normal variant.). Normal bilateral A2 segments of the anterior cerebral arteries. Normal right M1 and M2 segments of the middle cerebral arteries, with a normal M1 bifurcation. Normal left M1 and M2 segments of the middle cerebral arteries, with a normal M1 bifurcation. Posterior communicating arteries are not visualized consistent with normal variant. Normal bilateral vertebral arteries. Normal basilar artery with a normal basilar bifurcation. The visualized bilateral superior cerebellar (SCA) arteries are normal. Normal bilateral P1, P2 and visualized P3 segments of the posterior cerebral arteries. There is no demonstrated aneurysm of the deering of [place]. There is no major vessel occlusion or hemodynamically significant stenosis. There is no demonstrated abnormality of the visualized brain. MRI/MRA Head ONLY without Contrast IMPRESSION: Normal MRA of the head Electronically Signed: Aki Ford MD at 18:47 EDT , Service support ,
--- NOTE | 2018-07-13 15:08 | MRI_ITS ---
STUDY: MRI BRAIN WITHOUT CONTRAST REASON FOR EXAM: Female, 48 years old. CVA TECHNIQUE: Standardized multiplanar fat and water weighted pulse sequences were obtained. COMPARISON: CT of the brain on July 13, 2018 FINDINGS: Mild atrophy for stated age. Normal white matter tracts of the supratentorial brain. Normal bilateral basal ganglia. Normal thalami. There is no extra-axial fluid accumulation. Normal flow voids within the major intracranial circulation suggesting patency by spin echo criteria. Normal sella turcica, pituitary gland, infundibular stalk, optic chiasm and hypothalamus. Normal tectal plate and pineal gland. Normal midbrain, jean pierre and medulla. Normal cerebellum. Normal basal cisterns. Normal bilateral temporal bones. Normal bilateral internal auditory canals. No demonstrated orbital abnormality, within the constraints of a routine brain study. Normal visualized paranasal sinuses. Normal calvarium and skull base. Normal visualized soft tissue structures. Normal visualized upper cervical spine. MRI/Brain without Contrast IMPRESSION: Mild nonspecific atrophy for stated age No evidence for appreciable white matter disease or acute infarct Electronically Signed: Aki Ford MD at 18:45 EDT , Service support ,
--- NOTE | 2018-07-13 15:08 | MRI_ITS ---
STUDY: MRA NECK WITHOUT CONTRAST REASON FOR EXAM: Female, 48 years old. CVA TECHNIQUE: Source images were obtained, MIPs were performed. The study was performed unenhanced. COMPARISON: None. FINDINGS: RIGHT CAROTID ARTERIES: Normal right common carotid artery (CCA). Normal right common carotid bulb. Normal origin of the right internal carotid (ICA) artery without a hemodynamically significant stenosis. Normal visualized cervical portion of the right internal carotid artery. Normal origin of the right external carotid artery (ECA). LEFT CAROTID ARTERIES: Normal left common carotid artery (CCA). Normal left common carotid bulb. Normal origin of the left internal carotid (ICA) artery without a hemodynamically significant stenosis. Normal visualized cervical portion of the left internal carotid artery. Normal origin of the left external carotid artery (ECA). VERTEBRAL ARTERIES: Normal antegrade flow within the bilateral vertebral artery without a hemodynamically significant stenosis. MRI/MRA Neck without Contrast IMPRESSION: Normal bilateral cervical carotid and vertebral arteries. Electronically Signed: Aki Ford MD at 18:49 EDT , Service support ,
--- NOTE | 2018-07-13 15:09 | ECHOD_ITS ---
Reason For Study: TIA/CVA Procedure This was a 2D Doppler, Color Flow transthoracic echocardiogram. Exam performed portable in patient room. Left Ventricle Normal LV size. Left ventricular systolic function is normal. The estimated ejection fraction is 55 %. Transmitral doppler flow suggestive of impaired relaxation of left ventricle. No regional wall motion abnormalities noted. Right Ventricle Normal RV size. Normal systolic function. Atria Normal left atrium. Normal right atrium. No doppler evidence for ASD. Mitral Valve There is no mitral annular calcification. Normal mitral valve. Trivial mitral valve insufficiency. Tricuspid Valve Normal tricuspid valve. Trivial tricuspid valve insufficiency. Right ventricular systolic pressure estimated to be 23 mmHg. Aortic Valve Trisinus/trileaflet aortic valve. Normal aortic valve. Pulmonic Valve The pulmonic valve is not well visualized. Great Vessels Normal sized aortic root. Pericardium/Pleural No pericardial effusion. Medication NO IV ACCESS for bubble study. MMode/2D Measurements & Calculations LVIDd: 4.7 cm IVSd: 0.98 cm Ao root diam: 2.8 cm LVIDs: 3.5 cm LVPWd: 1.0 cm RVDd: 2.2 cm FS: 25.4 % LAV(MOD-bp): 33.5 ml LA A4 area: 12.6 cm2 LA dimension(2D): 2.9 cm LAV(MOD-bp) Indexed: 18.4 ml/m2 LAV(MOD-sp2): 34.5 ml LAV(MOD-sp4): 26.8 ml RA A4 area: 12.2 cm2 Time Measurements MV dec time: 0.20 sec Doppler Measurements & Calculations MV E max everardo: 57.9 cm/sec Lat Peak E' Everardo: 5.7 cm/sec Med Peak E' Everardo: 5.3 cm/sec MV A max everardo: 63.9 cm/sec E/E' lat: 10.2 E/E' med: 10.9 MV E/A: 0.91 Ao V2 max: 93.3 cm/sec LV V1 max: 79.7 cm/sec PA V2 max: 65.9 cm/sec Ao max P.5 mmHg LV V1 max P.5 mmHg TR max everardo: 221.1 cm/sec TR max P.6 mmHg Interpretation Summary Left ventricular systolic function is normal. The estimated ejection fraction is 55 %. Trivial mitral valve insufficiency. Trivial tricuspid valve insufficiency. Right ventricular systolic pressure estimated to be 23 mmHg. Ordering Physician: Yenifer Shannon Referring Physician: Klarissa Landrum Performed By: Yaquelin Matos RDCS, RVT
--- NOTE | 2018-07-13 15:10 | CASEMGMT ---
No one from [facility] has returned BURKE's phone call. BURKE called back and left a message with Tobacco Baler Katty Guzman. BURKE let patient know this information. Viviana COLEMAN MSW
[2018-07-13] MEDS: Ibuprofen 600 MG Tablet PO (15:55)
--- NOTE | 2018-07-13 16:03 | MRI_ITS ---
STUDY: MRI CERVICAL SPINE WITHOUT CONTRAST REASON FOR EXAM: Female, 48 years old. Neck pain and numbness TECHNIQUE: Standardized fat and water weighted pulse sequences were obtained in the sagittal and axial planes. COMPARISON: None FINDINGS: Normal foramen magnum and brainstem-cervical cord junction. Normal craniovertebral junction. Normal anterior atlantoaxial articulation. Normal odontoid process. Decreased cervical lordosis. Normal vertebral bodies and posterior osseous elements. C2-3: Normal endplates. Normal disc height, signal and morphology. Normal central canal and intervertebral neural foramina. C3-4: Mild anterior endplate spurring. Normal disc height, signal and morphology. Normal central canal and intervertebral neural foramina. C4-5: Mild endplate spurring.. Normal disc height, signal and minimal bulging of the disc. Normal central canal and intervertebral neural foramina. C5-6: Status post anterior fusion. No focal disc protrusion.. Normal central canal and intervertebral neural foramina. C6-7: Normal endplates. Normal disc height, signal and minor bulging of the disc. Normal central canal and intervertebral neural foramina. C7-T1: Normal endplates. Normal disc height, signal and morphology. Normal central canal and intervertebral neural foramina. Normal cervical cord. Normal visualized soft tissue structures. MRI/Spine Cervical (Routine) IMPRESSION: No acute fracture or other significant bony pathology Mild spondylosis Status post anterior fusion at C5-6. Minor bulging of the disc at C6-7 and to lesser extent at C4-5. No evidence for spinal stenosis or cord compression. Electronically Signed: Aki Ford MD at 21:54 EDT , Service support ,
--- NOTE | 2018-07-13 16:09 | PCM.CONS.GEN ---
Problem List (1) Numbness Status: Acute (2) Alcohol withdrawal Status: Acute Reason for Consult Date of Consultation: 07/13/18 Reason for Consultation: Possible stroke History of Present Illness: The patient is a 48 year old F with PMH HTN, EtOH abuse, nicotine abuse, hepatitis C, anxiety, history of neck surgery who was admitted to the hospital with alcohol withdrawal symptoms. Neurology consulted for possible stroke. History is obtained from patient and medical records. Per documentation she drinks about 15-30 ice beers every day and smokes about 1 pack/day. She continued to have hallucinations per documentation, tremors and agitation has had improved but patient continued to be confused per documentation. Per patient she has been having right-sided numbness, denies any focal motor weakness, speech disturbances or dizziness. Patient she also has been having headaches, generalized, frontal, denies any photophobia or phonophobia, complains of blurred vision, denies any nausea. Complains of chronic severe neck pain, denies any radicular symptoms. Labs?AST/ALT?79/76, creatinine 0.95, TSH 1.91, WBC 4.7. CT head done this morning 07/13/2018 reported to show possible 6.4 mm lacunar infarct in the posterior left thalamus. Past Medical History Past Medical History (Chronic Problems): Chronic Problems Alcoholism (Chronic) HTN (hypertension) (Chronic) Hepatitis C (Chronic) Anxiety (Chronic) Nicotine abuse (Chronic) Allergies cefaclor [From Ceclor] Allergy (Verified 07/10/18 15:44) swelling/rash Penicillins [PCN] Allergy (Verified 07/10/18 15:44) Rash sulfamethoxazole [From Bactrim] Allergy (Verified 07/10/18 15:44) swelling/rash trimethoprim [From Bactrim] Allergy (Verified 07/10/18 15:44) swelling/rash codeine Adverse Reaction (Verified 07/10/18 15:44) Nausea/Vom/Diarrhea propoxyphene Adverse Reaction (Verified 07/10/18 15:44) Nausea/Vom/Diarrhea Home Medications: Ambulatory Orders Medication Instructions Recorded Clonidine HCl [Catapres] 0.1 mg PO TID 07/10/18 Escitalopram Oxalate [Lexapro] 10 mg PO DAILY 07/10/18 Pantoprazole Sodium [Protonix] 40 mg PO DAILY 07/10/18 Surgical History: appendectomy, cholecystectomy, hysterectomy, rotator cuff repair, - - right wrist Psychiatric History: Anxiety COAGULATION OPERATOR History: No pertinent COAGULATION OPERATOR history Lives: Alone Smoking Status: Current every day smoker Tobacco Use: Cigarettes Alcohol: Heavy Drugs: None - *Family History Maternal History Items: Heart Disease Paternal History Items: - - alcoholism Sibling History Items: - - alcoholism Review of Systems Constitutional: Reports: - - Complete ROS negative except as documented in HPI Patient Problems: Active and Suspected Problems Alcohol withdrawal (Acute) Numbness (Acute) - Physical Exam General: - - Awake, AOA x2 HEENT: Normocephalic Neck: Supple Lungs: Normal air movement Cardiovascular: Normal S1, Normal S2 Abdomen: Bowel Sounds Present Extremities: No cyanosis Neurological: - - Conscious, awake, AOA x2, CN?2-12 grossly intact, power 5 x 5 all 4 extremities, no pronator drift, subjective sensory loss right side of the body, no cerebellar signs, gait deferred, reflexes + B/L B/S/T/K/A, NIHSS 2 at present, mRS 2 at baseline Vital Signs Temp Pulse Resp BP Pulse Ox 98.0 F 88 16 122/76 H 93 07/13/18 16:02 07/13/18 16:02 07/13/18 16:02 07/13/18 16:02 07/13/18 16:02 Oxygen Delivery Method Room Air Weight: 73.4 kg Body Mass Index (BMI) 26.1 Intake and Output for Last 24 Hours 07/11/18 07/12/18 07/13/18 23:59 23:59 23:59 Intake Total 1983 1640 / 1640 1050 / 1050 Balance 1983 1640 / 1640 1050 / 1050 Laboratory Tests Past 24 Hrs 07/13/18 07/13/18 07/13/18 14:10 14:10 14:10 WBC 4.7 RBC 4.53 Hgb 14.8 Hct 43.4 MCV 95.8 MCH 32.7 H MCHC 34.1 RDW 12.5 RDW Differential 41.9 Plt Count 170 MPV 10.0 Immature Gran % (Auto) 0.400 Neut % (Auto) 50.5 Lymph % (Auto) 31.8 [place] % (Auto) 12.8 H Eos % (Auto) 3.4 Baso % (Auto) 1.1 H Absolute Neuts (auto) 2.4 Absolute Lymphs (auto) 1.49 Total Counted Not Reportable Sodium 138 Potassium 4.2 Chloride 105 Carbon Dioxide 26.0 Anion Gap 7 BUN 12 Creatinine 0.95 Estim Creat Clear Calc 67.80 Est GFR (MDRD) Af Amer 80 Est GFR (MDRD) Non-Af 66 BUN/Creatinine Ratio 12.6 Glucose 115 H Hemoglobin A1c Calcium 9.1 Phosphorus 4.8 Magnesium 2.0 Total Bilirubin 0.40 AST 79 H ALT 76 H Alkaline Phosphatase 69 Total Protein 8.1 Albumin 3.3 Globulin 4.8 H Albumin/Globulin Ratio 0.7 L TSH Pending 07/13/18 14:10 WBC RBC Hgb Hct MCV MCH MCHC RDW RDW Differential Plt Count MPV Immature Gran % (Auto) Neut % (Auto) Lymph % (Auto) [place] % (Auto) Eos % (Auto) Baso % (Auto) Absolute Neuts (auto) Absolute Lymphs (auto) Total Counted Sodium Potassium Chloride Carbon Dioxide Anion Gap BUN Creatinine Estim Creat Clear Calc Est GFR (MDRD) Af Amer Est GFR (MDRD) Non-Af BUN/Creatinine Ratio Glucose Hemoglobin A1c Pending Calcium Phosphorus Magnesium Total Bilirubin AST ALT Alkaline Phosphatase Total Protein Albumin Globulin Albumin/Globulin Ratio TSH Assessment/Plan All Active Problems Alcohol withdrawal (Acute) Numbness (Acute) The patient is a 48 year old F with PMH HTN, EtOH abuse, history of EtOH induced seizures, nicotine abuse, hepatitis C, anxiety, history of neck surgery who was admitted to the hospital with alcohol withdrawal symptoms. Neurology consulted for possible stroke. History is obtained from patient and medical records. Per documentation she drinks about 15-30 ice beers every day and smokes about 1 pack/day. She continued to have hallucinations per documentation, tremors and agitation has had improved but patient continued to be confused per documentation. Per patient she has been having right-sided numbness, denies any focal motor weakness, speech disturbances or dizziness. Patient she also has been having headaches, generalized, frontal, denies any photophobia or phonophobia, complains of blurred vision, denies any nausea. Complains of chronic severe neck pain, denies any radicular symptoms. Labs?AST/ALT?79/76, creatinine 0.95, TSH 1.91, WBC 4.7. CT head done this morning 07/13/2018 reported to show possible 6.4 mm lacunar infarct in the posterior left thalamus. Impression Alcohol withdrawal Encephalopathy Rule out stroke Plan ?MRI brain without contrast, MRA head/neck, MRI C-spine without contrast ?On aspirin and Lipitor. Started after the CT scan report ?Labs reviewed ?TTE ?LDL, HbA1c ?PT/OT ?Stroke risk factors discussed and stroke education provided ?Goal BP less than 130/80 mmHg and goal HbA1c less than 7 percentage ?Patient counseled to stop alcohol and smoking cigarettes. ?GI/DVT prophylaxis ?Further medical management per hospitalist team ?Follow-up with neurology as outpatient in 4 to 6 weeks ?Please call with questions if any ?Thank you for allowing us was with the patient's current management Code Visit Inpatient E&M: [id number] Init Hosp L3
[2018-07-13 16:10] LABS: Thyroid Stim Hormone (TSH) 1.91 uIU/mL (0.358-3.74)
[2018-07-13 18:08] LABS: Hemoglobin A1c 5.3 % (4.2-6.3)
[2018-07-13] MEDS: Atorvastatin Calcium 40 MG Tablet PO (22:18)
[2018-07-13] MEDS: Famotidine 20 MG Tablet PO (22:18)
[2018-07-14] VITALS (13 sets, daily range): BP systolic 110–121; BP diastolic 65–81; PULSE 70–87; RESP 14–18; TEMP 36.3–37; O2SAT 93–98; BMI 26.1
[2018-07-14] MEDS: Ibuprofen 600 MG Tablet PO ×2 (04:11→16:22)
[2018-07-14] MEDS: LORazepam 1 MG Tablet PO ×3 (04:13→11:04)
[2018-07-14] MEDS: cloNIDine HCl 0.1 MG Tablet PO ×3 (05:31→21:42)
[2018-07-14] MEDS: chlordiazePOXIDE 25 MG Capsule PO ×2 (05:32→17:37)
[2018-07-14] MEDS: Enoxaparin 40 MG/0.4 ML Syringe SC (05:32)
[2018-07-14 05:57] LABS: Absolute Lymphocyte Count 1.72 X10^3/ul (0.83-4.51); Absolute Neutrophil Count 2.3 X10^3/uL (2.0-7.7); Basophil# 0.05 X10^3/uL; Basophil% 1.1 % (0-1); Eosinophil# 0.14 X10^3/uL; Hematocrit 45.6 % (37-47); Hemoglobin 15.2 g/dl (12.0-15.0); Lymphocyte # 1.72 X10^3/ul (4.0); Lymphocyte % 36.5 % (19-41); Mean Corp Hgb Conc 33.3 g/gl (32-36); Mean Corpuscular Hgb 31.8 pg (27.0-32.0); Mean Corpuscular Volume 95.4 fL (81-99); Mean Platelet Vol. 10.1 fl (6.2-12.0); Monocyte# 0.51 X10^3/uL; Monocyte% 10.8 % (0-10); Neutrophil # 2.28 X10^3/uL (2.7-7.7); Neutrophil % 48.4 % (47-70); Platelet Count 176 K/mm3 (150-450); RBC Distribution Width CV 12.5 % (11.6-14.6); RBC Distribution Width SD 42.5 fl (35.1-43.9); Red Blood Count 4.78 M/mm3 (4.2-5.4); White Blood Count 4.7 K/mm3 (4.4-11.0)
[2018-07-14 06:11] LABS: POSITIVE COUNT NO; POSITIVE DIFFERENTIAL NO; POSITIVE MORPHOLOGY NO
[2018-07-14 06:25] LABS: ALB/GLOB Ratio 0.7 RATIO (0.9-2.4); AST(SGOT) 86 U/L (15-37); Alanine Aminotransfer ALT/SGPT 80 U/L (13-56); Albumin, Serum 3.3 g/dL (3.2-5.0); Alkaline Phosphatase 68 U/L (45-117); Anion Gap 8 (5-15); BUN 14 mg/dL (7-18); BUN/Creat Ratio 15.3 RATIO (10-20); Calcium,Total 9.1 mg/dL (8.5-10.1); Chloride 103 mmol/L (98-107); Cholesterol 166 mg/dL (200); Creatinine, Serum 0.92 mg/dL (0.55-1.02); EST Glomerular Filtration Rate 69 mL/min (>60); Est Glom Filt Rate - Afr Amer 84 mL/min (>60); Estimated Creatinine Clearance 70.01 ml/min; Globulin 4.7 g/dL (2.2-4.2); Glucose 99 mg/dL (74-106); High Density Lipoprotein 50 mg/dL; Potassium 3.9 mmol/L (3.5-5.1); Sodium Level 138 mmol/L (136-145); Triglycerides 150 mg/dL; Very Low Density Lipoprotein 30 mg/dL (5-40)
--- NOTE | 2018-07-14 07:19 | US_ITS ---
STUDY: ABDOMINAL ULTRASOUND - RIGHT UPPER QUADRANT REASON FOR VISIT: Female, 48 years old. Elevated liver function tests. TECHNIQUE: Ultrasound evaluation of the right upper quadrant was performed with real-time and static salter-scale imaging. TECHNICAL QUALITY: Adequate. COMPARISON: None. FINDINGS: Liver: The liver measures 15.3 cm. There is increased echogenicity consistent with fatty infiltration. The bile ducts are within normal limits. There is hepatic color flow. The direction of portal flow is hepatopetal. There is no demonstrated mass lesion. Gallbladder: The patient is status post cholecystectomy. Common Bile Duct (C.B.D.): The common bile duct measures 4.9 mm. Pancreas: Normal size of the head, body and tail of the pancreas. There is normal echogenicity of the pancreas. There is no demonstrated pancreatic mass or cyst. Right Kidney: Normal size of the right kidney. The right kidney measures 10 cm x 4.4 cm x 4.7 cm. Normal renal cortex. The right cortex measures 1.3 cm. There is a 9 mm x 10 mm x 8 mm cyst. There is no right hydronephrosis. US/Liver IMPRESSION: Fatty infiltration of the liver. Status post cholecystectomy. Small cyst in the right kidney. Electronically Signed: Drake Mckinnon, at 13:59 EDT , Service support ,
--- NOTE | 2018-07-14 07:22 | PCM.PN.HOSP ---
Patient Problems: Active and Suspected Problems Alcohol withdrawal (Acute) Numbness (Acute) Subjective: Patient with no acute events overnight per self and per nursing report. Patient is much more alert and awake this morning, sitting upright in bed, talkative. She states she still has some hallucinations specifically with her mother and having discussions but has been improving and alcohol withdrawal symptoms are notably subsiding. Patient discussed with [facility] and interested in outpatient vivid trial. Patient also with noted thrush on examination with initiation of oral nystatin to which patient is amenable. Patient denies fevers, chills, nausea, emesis, abdominal pain, chest pain or dyspnea. Objective: Physical Examination: General: Awake, alert, more oriented, answering questions appropriately, does state that she had hallucinations again the evening prior with her mother involved again but is very alert and appropriate currently. Skin: normal color, turgor, no icterus, cyanosis. HEENT: AT/NC, EOMI, PERRLA, MMM, evidence of thrush. Lungs: CTA bilaterally, moderate effort, moderate decrease BL bases, no rales, ronchi or wheezing. Heart: Regular rate and rhythm; no gallop, rub audible. Abdomen: soft, NTTP, ND, normal BS. Extremities: no cyanosis, clubbing, or edema. Neurological: patient awake, alert, oriented x 3, improved; cognitive function suspect nearing baseline intact; pupils equally reactive to light and accomodation; cranial nerves II-XII grossly normal, moving all 4 extremities, no focal deficits, strength mildly to moderately globally decreased, improving. Psychiatric: affect appears normal, more appropriate today, no acute evidence of depressive or anxiety feelings. Vitals/I&O's: Vital Signs Temp Pulse Resp BP Pulse Ox 97.6 F L 76 18 121/79 H 93 07/14/18 04:00 07/14/18 04:00 07/14/18 04:00 07/14/18 04:00 07/14/18 04:00 Oxygen Delivery Method Room Air Weight: 161 lb 13.109 oz Body Mass Index (BMI) 26.1 Intake and Output for Last 24 Hours 07/12/18 07/13/18 07/14/18 23:59 23:59 23:59 Intake Total 1640 / 1640 1690 / 1690 Balance 1640 / 1640 1690 / 1690 Laboratory Results 07/13/18 14:10: WBC 4.7, RBC 4.53, Hgb 14.8, Hct 43.4, MCV 95.8, MCH 32.7 H, MCHC 34.1, RDW 12.5, RDW Differential 41.9, Plt Count 170, MPV 10.0, Immature Gran % (Auto) 0.400, Neut % (Auto) 50.5, Lymph % (Auto) 31.8, Hunt % (Auto) 12.8 H, Eos % (Auto) 3.4, Baso % (Auto) 1.1 H, Absolute Neuts (auto) 2.4, Absolute Lymphs (auto) 1.49, Total Counted Not Reportable 07/13/18 14:10: Sodium 138, Potassium 4.2, Chloride 105, Carbon Dioxide 26.0, Anion Gap 7, BUN 12, Creatinine 0.95, Estim Creat Clear Calc 67.80, Est GFR (MDRD) Af Amer 80, Est GFR (MDRD) Non-Af 66, BUN/Creatinine Ratio 12.6, Glucose 115 H, Calcium 9.1, Phosphorus 4.8, Magnesium 2.0, Total Bilirubin 0.40, AST 79 H, ALT 76 H, Alkaline Phosphatase 69, Total Protein 8.1, Albumin 3.3, Globulin 4.8 H, Albumin/Globulin Ratio 0.7 L 07/13/18 14:10: TSH 1.91 07/13/18 14:10: Hemoglobin A1c 5.3 07/14/18 05:35: WBC 4.7, RBC 4.78, Hgb 15.2 H, Hct 45.6, MCV 95.4, MCH 31.8, MCHC 33.3, RDW 12.5, RDW Differential 42.5, Plt Count 176, MPV 10.1, Immature Gran % (Auto) 0.200, Neut % (Auto) 48.4, Lymph % (Auto) 36.5, Hunt % (Auto) 10.8 H, Eos % (Auto) 3.0, Baso % (Auto) 1.1 H, Absolute Neuts (auto) 2.3, Absolute Lymphs (auto) 1.72, Total Counted Not Reportable 07/14/18 05:35: Sodium 138, Potassium 3.9, Chloride 103, Carbon Dioxide 27.0, Anion Gap 8, BUN 14, Creatinine 0.92, Estim Creat Clear Calc 70.01, Est GFR (MDRD) Af Amer 84, Est GFR (MDRD) Non-Af 69, BUN/Creatinine Ratio 15.3, Glucose 99, Calcium 9.1, Total Bilirubin 0.40, AST 86 H, ALT 80 H, Alkaline Phosphatase 68, Total Protein 8.0, Albumin 3.3, Globulin 4.7 H, Albumin/Globulin Ratio 0.7 L, Triglycerides 150, Cholesterol 166, LDL Cholesterol 86, VLDL Cholesterol 30, HDL Cholesterol 50 Current Medications Acetaminophen (Tylenol) 500 mg PO Q4H PRN PRN PRN Reason: Temp > 100.4 F Last Admin: 07/12/18 10:53 Dose: 500 mg Al Hydroxide/Mg Hydroxide (Mylanta Ii) 30 ml PO Q6H PRN PRN PRN Reason: dyspesia Aspirin (Aspirin, Baby) 81 mg PO DAILY@0800 [facility] Atorvastatin Calcium (Lipitor) 40 mg PO QHS [facility] Last Admin: 07/13/18 22:18 Dose: 40 mg Bisacodyl (Dulcolax) 10 mg RECTAL DAILY PRN PRN Reason: Constipation Chlordiazepoxide (Librium) 25 mg PO Q8H [facility]; Taper Stop: 07/16/18 13:59 Last Admin: 07/14/18 05:32 Dose: 25 mg Clonidine (Catapres) 0.1 mg PO TID [facility] Last Admin: 07/14/18 05:31 Dose: 0.1 mg Dicyclomine HCl (Bentyl) 20 mg PO Q6H PRN PRN PRN Reason: abdominal discomfort Last Admin: 07/12/18 04:33 Dose: 20 mg Enoxaparin Sodium (Lovenox) 40 mg SC DAILY@0600 [facility] Last Admin: 07/14/18 05:32 Dose: 40 mg Escitalopram Oxalate (Lexapro) 10 mg PO DAILY [facility] Last Admin: 07/13/18 07:44 Dose: 10 mg Famotidine (Pepcid) 20 mg PO BID [facility] Last Admin: 07/13/18 22:18 Dose: 20 mg Folic Acid (Folic Acid) 1 mg PO DAILY@0800 [facility] Last Admin: 07/13/18 07:43 Dose: 1 mg Hydroxyzine Pamoate (Vistaril Pamoate Capsule) 50 mg PO Q6H PRN PRN PRN Reason: Mild Anxiety (score 1/3) Last Admin: 07/13/18 02:07 Dose: 50 mg Ibuprofen (Motrin) 600 mg PO Q8H PRN PRN PRN Reason: Mild-Moderate Pain (1-5/10) Last Admin: 07/14/18 04:11 Dose: 600 mg Loperamide HCl (Imodium) 2 - 4 mg PO UD PRN PRN Reason: LOOSE STOOLS Lorazepam (Ativan) 1 mg PO Q2H PRN PRN PRN Reason: CIWA score > 8 but <15 Last Admin: 07/14/18 04:13 Dose: 1 mg Lorazepam (Ativan) 1 mg IV Q4H PRN PRN PRN Reason: Severe Anxiety Lorazepam (Ativan) 2 mg IV X1 PRN PRN Reason: Seizure Methocarbamol (Methocarbamol) 750 mg PO Q6H PRN PRN PRN Reason: Muscle Aches Last Admin: 07/12/18 02:16 Dose: 750 mg [facility]it[facility] ([facility]amin) [facility] Last Admin: 07/13/18 07:44 Dose: 1 tablet Nicotine (Nicoderm Cq (Pbkc)) 21 mg TRANSDERM. DAILY [facility] Last Admin: 07/13/18 07:44 Dose: 21 mg Ondansetron HCl (Zofran Odt) 4 mg PO Q6H PRN PRN PRN Reason: NAUSEA Last Admin: 07/12/18 02:17 Dose: 4 mg Pantoprazole Sodium (Protonix) 40 mg PO DAILY [facility] Last Admin: 07/13/18 07:45 Dose: 40 mg Senna (Senokot) 1 tablet PO QHS PRN PRN Reason: Constipation Sodium Chloride () 5 - 15 ml IV UD PRN PRN Reason: SALINE FLUSH Last Admin: 07/12/18 06:14 Dose: 10 ml Thiamine HCl ([facility]itamin B1) [facility] Last Admin: 07/13/18 07:44 Dose: 200 mg Trazodone HCl (Desyrel) 50 mg PO QHS [facility] Last Admin: 07/13/18 22:21 Dose: Not Given Zolpidem Tartrate (Ambien (Generic)) 5 mg PO QHS PRN PRN PRN Reason: INSOMNIA Medical Necessity - Tobacco Use Smoking Status: Current every day smoker Tobacco Use: Cigarettes Assessment/Plan All Active Problems Alcohol withdrawal (Acute) Numbness (Acute) The patient is a 48 y/o F w/ PMHx: Tobacco use, HTN, Chronic Hepatitis C, Anxiety and Depression, Chronic EtOH Abuse who presents to [facility] on 07/10[facility]18 as direct admission for acute EtOH withdrawal. (1) Acute EtOH Withdrawal: Admitted to PCU, labs per OSH, 07/13/18 ongoing hallucinations thus obtained CT head in case of fall while intoxicated, work-up as noted #2, labs w/ mild AST/ALT elevation with hx hepatitis C, increased mildly 07/14/18 from day prior, hepatitis panel and US pending liver, 07/13/18 initiated and continued on [facility] service protocol with taper course of librium instead of only CIWA oral ativan, as Catapres, Bentyl, Vistaril, IV fluids, IV antiemetics, Tylenol as needed for pain. [facility] consulted, planned outpatient vivitrol usage. Will plan to continue regimen through to 07/15/18 given ? hallucinations and alter to q 12 regimen. as following completion of taper nearing will need plan for transition to next level of rehabilitation care. Maintain on CIWA protocol. Mag and phos normal. Suspect that medications may be the etiology for her ? hallucinations given all other withdrawal symptoms have resolved. (2) Abnormal CT Head w/ Concern initially for CVA, Ruled Out: CT head resulted with concern for possible 6.4 mm lacunar infarct in the posterior left thalamus. Given these findings, obtained MRI Brain w/ mild nonspecific atrophy with no evidence of acute infarct, unremarkable MRA Head and unremarkable MRA Neck, ECHO currently pending, PT/OT/Speech/Nutrition evaluation per protocol. Neurology consulted and also obtained cervical spine MRI w/ no acute fracture or any pathology, mild spongiosis, status post anterior fusion C5-6, or bulging in the disc at C6-7 and to a lesser extent C4-5 with no evidence for spinal stenosis or cord compression. Continued on asa, moderate dose statin given mild AST/ALT elevations, AM FLP obtained, fall precautions, mag normal, TSH normal. (3) History of Hepatitis C, Chronic: Patient currently not candidate for hep C treatment currently as needs to be clean, sober x 6 months, documented attendance NA or AA meetings, counseling and ongoing negative drug screens. Once appropriate GI, ID to initiate. 07/13/18 AST/ALT 79/76-->07/14/18 AST/ALT 86/80. Given increase and underlying history with poor follow-up will obtain hepatic ultrasound as well as hepatitis panel for possible coinfection. (3) Oral Thrush: Initiate oral nystatin S/S. (4) Tobacco Abuse: Encouraged cessation, inpatient consultation per RT, NR if desired. (5) Hypertension: Continue home regimen including clonidine to avoid rebound HTN with transition given #2, PRN hydralazine. (6) Anxiety and Depression: Continue home Lexapro regimen. (7) GERD: PPI. (8) DVT Prophylaxis: SCDs, lovenox. Code Visit Inpatient E&M: 11159 Subs Hosp L2
--- NOTE | 2018-07-14 07:26 | PN_ITS ---
Patient Problems: Active and Suspected Problems Alcohol withdrawal (Acute) Numbness (Acute) Subjective: Patient with no acute events overnight per self and per nursing report. Patient is much more alert and awake this morning, sitting upright in bed, talkative. She states she still has some hallucinations specifically with her mother and having discussions but has been improving and alcohol withdrawal symptoms are notably subsiding. Patient discussed with [facility] and interested in outpatient vivid trial. Patient also with noted thrush on examination with initiation of oral nystatin to which patient is amenable. Patient denies fevers, chills, nausea, emesis, abdominal pain, chest pain or dyspnea. Objective: Physical Examination: General: Awake, alert, more oriented, answering questions appropriately, does state that she had hallucinations again the evening prior with her mother involved again but is very alert and appropriate currently. Skin: normal color, turgor, no icterus, cyanosis. HEENT: AT/NC, EOMI, PERRLA, MMM, evidence of thrush. Lungs: CTA bilaterally, moderate effort, moderate decrease BL bases, no rales, ronchi or wheezing. Heart: Regular rate and rhythm; no gallop, rub audible. Abdomen: soft, NTTP, ND, normal BS. Extremities: no cyanosis, clubbing, or edema. Neurological: patient awake, alert, oriented x 3, improved; cognitive function suspect nearing baseline intact; pupils equally reactive to light and accomodation; cranial nerves II-XII grossly normal, moving all 4 extremities, no focal deficits, strength mildly to moderately globally decreased, improving. Psychiatric: affect appears normal, more appropriate today, no acute evidence of depressive or anxiety feelings. Vitals/I&O's: Vital Signs Temp Pulse Resp BP Pulse Ox 97.6 F L 76 18 121/79 H 93 07/14/18 04:00 07/14/18 04:00 07/14/18 04:00 07/14/18 04:00 07/14/18 04:00 Oxygen Delivery Method Room Air Weight: 161 lb 13.109 oz Body Mass Index (BMI) 26.1 Intake and Output for Last 24 Hours 07/12/18 07/13/18 07/14/18 23:59 23:59 23:59 Intake Total 1640 / 1640 1690 / 1690 Balance 1640 / 1640 1690 / 1690 Laboratory Results 07/13/18 14:10: WBC 4.7, RBC 4.53, Hgb 14.8, Hct 43.4, MCV 95.8, MCH 32.7 H, MCHC 34.1, RDW 12.5, RDW Differential 41.9, Plt Count 170, MPV 10.0, Immature Gran % (Auto) 0.400, Neut % (Auto) 50.5, Lymph % (Auto) 31.8, [place] % (Auto) 12.8 H, Eos % (Auto) 3.4, Baso % (Auto) 1.1 H, Absolute Neuts (auto) 2.4, Absolute Lymphs (auto) 1.49, Total Counted Not Reportable 07/13/18 14:10: Sodium 138, Potassium 4.2, Chloride 105, Carbon Dioxide 26.0, Anion Gap 7, BUN 12, Creatinine 0.95, Estim Creat Clear Calc 67.80, Est GFR (MDRD) Af Amer 80, Est GFR (MDRD) Non-Af 66, BUN/Creatinine Ratio 12.6, Glucose 115 H, Calcium 9.1, Phosphorus 4.8, Magnesium 2.0, Total Bilirubin 0.40, AST 79 H, ALT 76 H, Alkaline Phosphatase 69, Total Protein 8.1, Albumin 3.3, Globulin 4.8 H, Albumin/Globulin Ratio 0.7 L 07/13/18 14:10: TSH 1.91 07/13/18 14:10: Hemoglobin A1c 5.3 07/14/18 05:35: WBC 4.7, RBC 4.78, Hgb 15.2 H, Hct 45.6, MCV 95.4, MCH 31.8, MCHC 33.3, RDW 12.5, RDW Differential 42.5, Plt Count 176, MPV 10.1, Immature Gran % (Auto) 0.200, Neut % (Auto) 48.4, Lymph % (Auto) 36.5, [place] % (Auto) 10.8 H, Eos % (Auto) 3.0, Baso % (Auto) 1.1 H, Absolute Neuts (auto) 2.3, Absolute Lymphs (auto) 1.72, Total Counted Not Reportable 07/14/18 05:35: Sodium 138, Potassium 3.9, Chloride 103, Carbon Dioxide 27.0, Anion Gap 8, BUN 14, Creatinine 0.92, Estim Creat Clear Calc 70.01, Est GFR (MDRD) Af Amer 84, Est GFR (MDRD) Non-Af 69, BUN/Creatinine Ratio 15.3, Glucose 99, Calcium 9.1, Total Bilirubin 0.40, AST 86 H, ALT 80 H, Alkaline Phosphatase 68, Total Protein 8.0, Albumin 3.3, Globulin 4.7 H, Albumin/Globulin Ratio 0.7 L , Triglycerides 150, Cholesterol 166, LDL Cholesterol 86, VLDL Cholesterol 30, HDL Cholesterol 50 Current Medications Acetaminophen (Tylenol) 500 mg PO Q4H PRN PRN PRN Reason: Temp > 100.4 F Last Admin: 07/12/18 10:53 Dose: 500 mg Al Hydroxide/Mg Hydroxide (Mylanta Ii) 30 ml PO Q6H PRN PRN PRN Reason: dyspesia Aspirin (Aspirin, Baby) 81 mg PO DAILY@0800 [facility] Atorvastatin Calcium (Lipitor) 40 mg PO QHS [facility] Last Admin: 07/13/18 22:18 Dose: 40 mg Bisacodyl (Dulcolax) 10 mg RECTAL DAILY PRN PRN Reason: Constipation Chlordiazepoxide (Librium) 25 mg PO Q8H [facility]; Taper Stop: 07/16/18 13:59 Last Admin: 07/14/18 05:32 Dose: 25 mg Clonidine (Catapres) 0.1 mg PO TID [facility] Last Admin: 07/14/18 05:31 Dose: 0.1 mg Dicyclomine HCl (Bentyl) 20 mg PO Q6H PRN PRN PRN Reason: abdominal discomfort Last Admin: 07/12/18 04:33 Dose: 20 mg Enoxaparin Sodium (Lovenox) 40 mg SC DAILY@0600 [facility] Last Admin: 07/14/18 05:32 Dose: 40 mg Escitalopram Oxalate (Lexapro) 10 mg PO DAILY [facility] Last Admin: 07/13/18 07:44 Dose: 10 mg Famotidine (Pepcid) 20 mg PO BID [facility] Last Admin: 07/13/18 22:18 Dose: 20 mg Folic Acid (Folic Acid) 1 mg PO DAILY@0800 [facility] Last Admin: 07/13/18 07:43 Dose: 1 mg Hydroxyzine Pamoate (Vistaril Pamoate Capsule) 50 mg PO Q6H PRN PRN PRN Reason: Mild Anxiety (score 1/3) Last Admin: 07/13/18 02:07 Dose: 50 mg Ibuprofen (Motrin) 600 mg PO Q8H PRN PRN PRN Reason: Mild-Moderate Pain (1-5/10) Last Admin: 07/14/18 04:11 Dose: 600 mg Loperamide HCl (Imodium) 2 - 4 mg PO UD PRN PRN Reason: LOOSE STOOLS Lorazepam (Ativan) 1 mg PO Q2H PRN PRN PRN Reason: CIWA score > 8 but <15 Last Admin: 07/14/18 04:13 Dose: 1 mg Lorazepam (Ativan) 1 mg IV Q4H PRN PRN PRN Reason: Severe Anxiety Lorazepam (Ativan) 2 mg IV X1 PRN PRN Reason: Seizure Methocarbamol (Methocarbamol) 750 mg PO Q6H PRN PRN PRN Reason: Muscle Aches Last Admin: 07/12/18 02:16 Dose: 750 mg [facility]) [facility] Last Admin: 07/13/18 07:44 Dose: 1 tablet Nicotine (Nicoderm Cq (Pbkc)) 21 mg TRANSDERM. DAILY [facility] Last Admin: 07/13/18 07:44 Dose: 21 mg Ondansetron HCl (Zofran Odt) 4 mg PO Q6H PRN PRN PRN Reason: NAUSEA Last Admin: 07/12/18 02:17 Dose: 4 mg Pantoprazole Sodium (Protonix) 40 mg PO DAILY [facility] Last Admin: 07/13/18 07:45 Dose: 40 mg Senna (Senokot) 1 tablet PO QHS PRN PRN Reason: Constipation Sodium Chloride () 5 - 15 ml IV UD PRN PRN Reason: SALINE FLUSH Last Admin: 07/12/18 06:14 Dose: 10 ml Thiamine HCl ([facility]itamin B[facility]) [facility] Last Admin: 07/13/18 07:44 Dose: 200 mg Trazodone HCl (Desyrel) 50 mg PO QHS [facility] Last Admin: 07/13/18 22:21 Dose: Not Given Zolpidem Tartrate (Ambien (Generic)) 5 mg PO QHS PRN PRN PRN Reason: INSOMNIA Medical Necessity - Tobacco Use Smoking Status: Current every day smoker Tobacco Use: Cigarettes Assessment/Plan All Active Problems Alcohol withdrawal (Acute) Numbness (Acute) The patient is a 48 y/o F w/ PMHx: Tobacco use, HTN, Chronic Hepatitis C, Anxiety and Depression, Chronic EtOH Abuse who presents to the [facility] on 07[facility]10[facility]18 as direct admission for acute EtOH withdrawal. (1) Acute EtOH Withdrawal: Admitted to PCU, labs per OSH, 07/13/18 ongoing hallucinations thus obtained CT head in case of fall while intoxicated, work-up as noted #2, labs w/ mild AST/ALT elevation with hx hepatitis C, increased mildly 07/14/18 from day prior, hepatitis panel and US pending liver, 07/13/18 initiated and continued on [facility] service protocol with taper course of librium instead of only CIWA oral ativan, as Catapres, Bentyl, Vistaril, IV fluids, IV antiemetics, Tylenol as needed for pain. [facility] consulted, planned outpatient vivitrol usage. Will plan to continue regimen through to 07/15/18 given ? hallucinations and alter to q 12 regimen. as following completion of taper nearing will need plan for transition to next level of rehabilitation care. Maintain on CIWA protocol. Mag and phos normal. Suspect that medications may be the etiology for her ? hallucinations given all other withdrawal symptoms have resolved. (2) Abnormal CT Head w/ Concern initially for CVA, Ruled Out: CT head resulted with concern for possible 6.4 mm lacunar infarct in the posterior left thalamus. Given these findings, obtained MRI Brain w/ mild nonspecific atrophy with no evidence of acute infarct, unremarkable MRA Head and unremarkable MRA Neck, ECHO currently pending, PT/OT/Speech/Nutrition evaluation per protocol. Neurology consulted and also obtained cervical spine MRI w/ no acute fracture or any pathology, mild spongiosis, status post anterior fusion C5-6, or bulging in the disc at C6-7 and to a lesser extent C4-5 with no evidence for spinal stenosis or cord compression. Continued on asa, moderate dose statin given mild AST/ALT elevations, AM FLP obtained, fall precautions, mag normal, TSH normal. (3) History of Hepatitis C, Chronic: Patient currently not candidate for hep C treatment currently as needs to be clean, sober x 6 months, documented attendance NA or AA meetings, counseling and ongoing negative drug screens. Once appropriate GI, ID to initiate. 07/13/18 AST/ALT 79/76-->07/14/18 AST/ALT 86/80. Given increase and underlying history with poor follow-up will obtain hepatic ultrasound as well as hepatitis panel for possible coinfection. (3) Oral Thrush: Initiate oral nystatin S/S. (4) Tobacco Abuse: Encouraged cessation, inpatient consultation per RT, NR if desired. (5) Hypertension: Continue home regimen including clonidine to avoid rebound HTN with transition given #2, PRN hydralazine. (6) Anxiety and Depression: Continue home Lexapro regimen. (7) GERD: PPI. (8) DVT Prophylaxis: SCDs, lovenox. Code Visit Inpatient E&M: 98096 Subs Hosp L2
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
[2018-07-14] MEDS: Folic Acid 1 MG Tablet PO (10:54)
[2018-07-14] MEDS: Pantoprazole Sodium 40 MG Tablet PO (10:54)
--- NOTE | 2018-07-14 10:54 | NEWVISION ---
Tera Delcid met with patient to discuss aftercare AOD treatment options. Patient reported that she wanted to go to [facility] for the Vivitrol shot. Patient was provided with the contact information. Tera Delcid reported patients concerns regarding not having a phone or money to [facility] and also being [place] [employer].
[2018-07-14] MEDS: Famotidine 20 MG Tablet PO ×2 (10:55→21:42)
[2018-07-14] MEDS: Aspirin 81 MG TAB.CHEW PO (10:55)
[2018-07-14] MEDS: Multivitamins,Therapeutic Tablet 1 TABLET PO (10:55)
[2018-07-14] MEDS: Thiamine Hydrochloride 100 MG Tablet 200 MG PO (10:55)
[2018-07-14] MEDS: Escitalopram Oxalate 10 MG Tablet PO (10:56)
--- NOTE | 2018-07-14 11:17 | CASEMGMT ---
SW completed a PHQ-9 with patient as she had a Stroke. She told SW prior to completing assessment that she had Depression even before she had the Stroke. Patient scored a 19 which indicates moderately severe depression. SW spoke with patient about mental health resources in the area where she lives. She said she already plans on going to [facility] in [place] for her alcohol problem and her Depression. Viviana COLEMAN MSW
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
--- NOTE | 2018-07-14 14:41 | PCM.PN.NEU ---
Patient Problems: Active and Suspected Problems Alcohol withdrawal (Acute) Numbness (Acute) Subjective: No issues overnight. Per patient she has been having the right-sided numbness for many years. Discussed with the patient that her MRI brain did not show any acute stroke. Per patient her headache has been improving. Denies any migrainous features. - Physical Exam General: Alert HEENT: Normocephalic Neck: Supple Lungs: Normal air movement Cardiovascular: Normal S1, Normal S2 Abdomen: Bowel Sounds Present Extremities: No cyanosis Neurological: - - Conscious, awake, AOA x2, CN?2-12 grossly intact, power 5 x 5 all 4 extremities, no pronator drift, subjective sensory loss right side of the body (per patient had his chronic), no cerebellar signs, gait deferred, reflexes + B/L B/S/T/K/A Psych/Mental Status: Normal Affect Vital Signs Temp Pulse Resp BP Pulse Ox 98.0 F 84 16 115/72 97 07/14/18 14:06 07/14/18 14:06 07/14/18 14:06 07/14/18 14:06 07/14/18 14:06 Oxygen Delivery Method Room Air Weight: 73.4 kg Body Mass Index (BMI) 26.1 Intake and Output for Last 24 Hours 07/12/18 07/13/18 07/14/18 23:59 23:59 23:59 Intake Total 1640 / 1640 1690 / 1690 Balance 1640 / 1640 1690 / 1690 Laboratory Tests Past 24 Hrs 07/13/18 07/13/18 07/13/18 14:10 14:10 14:10 WBC RBC Hgb Hct MCV MCH MCHC RDW RDW Differential Plt Count MPV Immature Gran % (Auto) Neut % (Auto) Lymph % (Auto) [place] % (Auto) Eos % (Auto) Baso % (Auto) Absolute Neuts (auto) Absolute Lymphs (auto) Total Counted Sodium 138 Potassium 4.2 Chloride 105 Carbon Dioxide 26.0 Anion Gap 7 BUN 12 Creatinine 0.95 Estim Creat Clear Calc 67.80 Est GFR (MDRD) Af Amer 80 Est GFR (MDRD) Non-Af 66 BUN/Creatinine Ratio 12.6 Glucose 115 H Hemoglobin A1c 5.3 Calcium 9.1 Phosphorus 4.8 Magnesium 2.0 Total Bilirubin 0.40 AST 79 H ALT 76 H Alkaline Phosphatase 69 Total Protein 8.1 Albumin 3.3 Globulin 4.8 H Albumin/Globulin Ratio 0.7 L Triglycerides Cholesterol LDL Cholesterol VLDL Cholesterol HDL Cholesterol TSH 1.91 Hepatitis A IgM Ab Hepatitis A Ab Total Hep Bs Antigen Hep B Core Total Ab Hep B Core IgM Ab 07/14/18 07/14/18 07/14/18 05:35 05:35 09:30 WBC 4.7 RBC 4.78 Hgb 15.2 H Hct 45.6 MCV 95.4 MCH 31.8 MCHC 33.3 RDW 12.5 RDW Differential 42.5 Plt Count 176 MPV 10.1 Immature Gran % (Auto) 0.200 Neut % (Auto) 48.4 Lymph % (Auto) 36.5 [place] % (Auto) 10.8 H Eos % (Auto) 3.0 Baso % (Auto) 1.1 H Absolute Neuts (auto) 2.3 Absolute Lymphs (auto) 1.72 Total Counted Not Reportable Sodium 138 Potassium 3.9 Chloride 103 Carbon Dioxide 27.0 Anion Gap 8 BUN 14 Creatinine 0.92 Estim Creat Clear Calc 70.01 Est GFR (MDRD) Af Amer 84 Est GFR (MDRD) Non-Af 69 BUN/Creatinine Ratio 15.3 Glucose 99 Hemoglobin A1c Calcium 9.1 Phosphorus Magnesium Total Bilirubin 0.40 AST 86 H ALT 80 H Alkaline Phosphatase 68 Total Protein 8.0 Albumin 3.3 Globulin 4.7 H Albumin/Globulin Ratio 0.7 L Triglycerides 150 Cholesterol 166 LDL Cholesterol 86 VLDL Cholesterol 30 HDL Cholesterol 50 TSH Hepatitis A IgM Ab Pending Hepatitis A Ab Total Pending Hep Bs Antigen Pending Hep B Core Total Ab Pending Hep B Core IgM Ab Pending Medical Necessity - Tobacco Use Smoking Status: Current every day smoker Tobacco Use: Cigarettes Assessment/Plan All Active Problems Alcohol withdrawal (Acute) Numbness (Acute) The patient is a 48 year old F with PMH HTN, EtOH abuse, history of EtOH induced seizures, nicotine abuse, hepatitis C, anxiety, history of neck surgery who was admitted to the hospital with alcohol withdrawal symptoms. Neurology consulted for possible stroke. History is obtained from patient and medical records. Per documentation she drinks about 15-30 ice beers every day and smokes about 1 pack/day. She continued to have hallucinations per documentation, tremors and agitation has had improved but patient continued to be confused per documentation. Per patient she has been having right-sided numbness, denies any focal motor weakness, speech disturbances or dizziness. Patient she also has been having headaches, generalized, frontal, denies any photophobia or phonophobia, complains of blurred vision, denies any nausea. Complains of chronic severe neck pain, denies any radicular symptoms. Labs?AST/ALT?79/76, creatinine 0.95, TSH 1.91, WBC 4.7. CT head done this morning 07/13/2018 reported to show possible 6.4 mm lacunar infarct in the posterior left thalamus. Impression Alcohol withdrawal Encephalopathy Chronic right-sided numbness Stroke ruled out Plan ?MRI brain without contrast-did not show any acute stroke ?MRA head/neck-reported normal ?MRI C-spine without contrast?reported to show mild spondylolysis, status post anterior fusion at C5-C6, minor bulging at C6-C7 and to lesser extent at C4-C5, no evidence of spinal stenosis or cord compression. ?On aspirin and Lipitor. No indication to be on antiplatelets or statins from neurology standpoint. Defer further decision making to hospitalist. ?Labs reviewed ?TTE?EF 55%, normal LA size, no Doppler evidence of ASD ?LDL?86, HbA1c?5.3 ?PT/OT ?Stroke risk factors discussed and stroke education provided ?Goal BP less than 130/80 mmHg and goal HbA1c less than 7 percentage ?Patient counseled to stop alcohol and smoking cigarettes. ?GI/DVT prophylaxis ?Further medical management per hospitalist team ?Please call with questions if any ?Thank you for allowing us was with the patient's current management
[2018-07-14] MEDS: NYSTATIN 500,000 UNIT/5 ML UDC 500000 UNIT PO ×3 (14:48→21:42)
[2018-07-14] MEDS: Atorvastatin Calcium 40 MG Tablet PO (21:42)
[2018-07-14] MEDS: ALPRAZolam 0.5 MG Tablet PO (21:42)
[2018-07-15 02:28] VITALS: BP 104/70; PULSE 73; RESP 14; TEMP 36.4
[2018-07-15 02:31] VITALS: BP 104/70; PULSE 73; RESP 14; TEMP 36.4; O2SAT 97
[2018-07-15 05:51] LABS: Absolute Lymphocyte Count 1.76 X10^3/ul (0.83-4.51); Absolute Neutrophil Count 2.6 X10^3/uL (2.0-7.7); Basophil# 0.06 X10^3/uL; Basophil% 1.1 % (0-1); Eosinophil# 0.18 X10^3/uL; Eosinophils% 3.3 % (0-5); Hematocrit 43.9 % (37-47); Hemoglobin 14.5 g/dl (12.0-15.0); Lymphocyte # 1.76 X10^3/ul (4.0); Lymphocyte % 32.1 % (19-41); Mean Corpuscular Hgb 31.6 pg (27.0-32.0); Mean Corpuscular Volume 95.6 fL (81-99); Mean Platelet Vol. 9.9 fl (6.2-12.0); Monocyte# 0.83 X10^3/uL; Monocyte% 15.1 % (0-10); Neutrophil # 2.64 X10^3/uL (2.7-7.7); POSITIVE COUNT NO; POSITIVE DIFFERENTIAL NO; POSITIVE MORPHOLOGY NO; Platelet Count 173 K/mm3 (150-450); RBC Distribution Width CV 12.4 % (11.6-14.6); RBC Distribution Width SD 42.3 fl (35.1-43.9); Red Blood Count 4.59 M/mm3 (4.2-5.4); White Blood Count 5.5 K/mm3 (4.4-11.0)
[2018-07-15 06:10] VITALS: BP 119/79; PULSE 73; RESP 16; TEMP 36.5
[2018-07-15] MEDS: Enoxaparin 40 MG/0.4 ML Syringe SC (06:11)
[2018-07-15] MEDS: cloNIDine HCl 0.1 MG Tablet PO (06:11)
[2018-07-15] MEDS: chlordiazePOXIDE 25 MG Capsule PO (06:11)
[2018-07-15 06:20] LABS: ALB/GLOB Ratio 0.7 RATIO (0.9-2.4); AST(SGOT) 83 U/L (15-37); Alanine Aminotransfer ALT/SGPT 83 U/L (13-56); Albumin, Serum 3.3 g/dL (3.2-5.0); Alkaline Phosphatase 64 U/L (45-117); Anion Gap 8 (5-15); BUN 16 mg/dL (7-18); BUN/Creat Ratio 19.1 RATIO (10-20); Calcium,Total 9.3 mg/dL (8.5-10.1); Chloride 105 mmol/L (98-107); Creatinine, Serum 0.84 mg/dL (0.55-1.02); EST Glomerular Filtration Rate 77 mL/min (>60); Est Glom Filt Rate - Afr Amer 93 mL/min (>60); Estimated Creatinine Clearance 76.67 ml/min; Globulin 4.6 g/dL (2.2-4.2); Glucose 96 mg/dL (74-106); Protein, Total 7.9 g/dL (6.4-8.2); Sodium Level 139 mmol/L (136-145)
[2018-07-15 07:06] LABS: HEPATITIS B SURFACE AG Negative (Negative); Hepatitis A AB, Total Negative (Negative); Hepatitis A IgM Antibody Negative (Negative); Hepatitis B Core AB IgM Negative (Negative); Hepatitis B Core Ab Total Negative (Negative); Hepatitis C Ab >11.0 s/co ratio (0.0-0.9)
[2018-07-15] MEDS: ALPRAZolam 0.5 MG Tablet PO (08:10)
[2018-07-15] MEDS: Folic Acid 1 MG Tablet PO (08:11)
[2018-07-15] MEDS: Thiamine Hydrochloride 100 MG Tablet 200 MG PO (08:11)
[2018-07-15] MEDS: Multivitamins,Therapeutic Tablet 1 TABLET PO (08:11)
[2018-07-15] MEDS: Aspirin 81 MG TAB.CHEW PO (08:12)
[2018-07-15] MEDS: Pantoprazole Sodium 40 MG Tablet PO (08:14)
[2018-07-15] MEDS: Famotidine 20 MG Tablet PO (08:14)
[2018-07-15] MEDS: Escitalopram Oxalate 10 MG Tablet PO (08:14)
[2018-07-15] MEDS: NYSTATIN 500,000 UNIT/5 ML UDC 500000 UNIT PO (08:15)
[2018-07-15 08:20] VITALS: BP 105/82; PULSE 71; RESP 18; TEMP 36.4; O2SAT 97
[2018-07-15 08:29] VITALS: BP 105/82; PULSE 71; RESP 18; TEMP 36.4
--- NOTE | 2018-07-15 09:16 | DCINST_ITS ---
- Discharge Diagnoses Current Active Problems: Current Active and Chronic Problems (1) Acute EtOH Withdrawal (2) Abnormal CT Head w/ Concern initially for CVA w/ chronic R sided paresthesias, Acute CVA Ruled Out (3) History of Hepatitis C, Chronic with chronically elevated LFTs (3) Oral Thrush (4) Tobacco Abuse (5) Hypertension (6) Anxiety and Depression (7) GERD You will use the following diet at home:: Cardiac Your food should be the consistency of: Regular Your liquids should be the consistency of: Regular/Thin Discharge Activity: Return to Normal Activity Weight Bearing Status: Weight bearing as tolerated Call your doctor if you observe: Fever of 101 or Higher, Inability to urinate, Inability to have a bowel movement, Shortness of breath, Dizziness, Fainting spells, Chest pain, Uncontrolled pain Instructions: Life After Combat: Coping with Alcohol Abuse, What Can Cause Depression?, Understanding Alcoholism, Alcoholism: Myths and Facts, The Impact of Alcoholism, Alcoholism: How to be Part of the Solution, Alcoholism: Getting Help, Tips for Quitting Smoking (Cardiovascular), Planning to Quit Smoking, Getting Support for Quitting Smoking, Coping with Smoking Withdrawal, Understanding Hepatitis C (HCV), Treating Hepatitis C (HCV) Additional Instructions: HEPATITIS C: You are not currently a candidate for hep C treatment as you must be clean, sober x 6 months, documented attendance NA or AA meetings, counseling and ongoing negative drug screens. Once appropriate GI, ID evaluation may be initiated via your primary care physician once these criteria are satisfied. Allergies/Adverse Reactions: Allergies cefaclor [From Ceclor] Allergy (Verified 07/10/18 15:44) swelling/rash Penicillins [PCN] Allergy (Verified 07/10/18 15:44) Rash sulfamethoxazole [From Bactrim] Allergy (Verified 07/10/18 15:44) swelling/rash trimethoprim [From Bactrim] Allergy (Verified 07/10/18 15:44) swelling/rash codeine Adverse Reaction (Verified 07/10/18 15:44) Nausea/Vom/Diarrhea propoxyphene Adverse Reaction (Verified 07/10/18 15:44) Nausea/Vom/Diarrhea Medications to take at Discharge Clonidine HCl [Catapres] 0.1 mg PO TID 07/10/18 Escitalopram Oxalate [Lexapro] 10 mg PO DAILY 07/10/18 Pantoprazole Sodium [Protonix] 40 mg PO DAILY 07/10/18 Folic Acid 1 mg PO DAILY@0800 #30 tab 07/15/18 Multivitamins,Therapeutic [Multivitamin] 1 tab PO DAILYCM #30 tab 07/15/18 Nystatin 500,000 unit PO 4X/DAY #1 bottle 07/15/18 Thiamine Hydrochloride [Vitamin B1] 100 mg PO DAILYCM #30 tab 07/15/18 The following prescriptions were given: Folic Acid 1 mg PO DAILY@0800 #30 tab Multivitamins,Therapeutic [Multivitamin] 1 tab PO DAILYCM #30 tab Thiamine Hydrochloride [Vitamin B1] 100 mg PO DAILYCM #30 tab Nystatin 500,000 unit PO 4X/DAY #1 bottle Please follow up with your Primary Care Physician in: Follow-up with your primary care physician within 3-5 days. Test Results: Test results from this visit will be discussed in further detail at your follow- up appointment, if applicable. Please Follow Up With: [facility] When: Please continue with next step in [facility] care plan. Proposed Discharge Date: 07/15/18
--- NOTE | 2018-07-15 09:17 | PCM.DC.SUM ---
Discharge Date and Diagnosis - Problem List Patient Problems: Active and Suspected Problems Alcohol withdrawal (Acute) Numbness (Acute) Date of Admission: 07/10/18 Date of Discharge: 07/15/18 - Primary Discharge Diagnosis Active and Suspected Problems (1) Acute EtOH Withdrawal (2) Abnormal CT Head w/ Concern initially for CVA w/ chronic R sided paresthesias, Acute CVA Ruled Out (3) History of Hepatitis C, Chronic with chronically elevated LFTs (3) Oral Thrush (4) Tobacco Abuse (5) Hypertension (6) Anxiety and Depression (7) GERD - Secondary Discharge Diagnosis Chronic Problems Alcoholism (Chronic) HTN (hypertension) (Chronic) Hepatitis C (Chronic) Anxiety (Chronic) Nicotine abuse (Chronic) Hospital Course and Treatment Consultations 07/13/18 11:49 Consult: [facility] Routine Consulting Provider: Consulted Physician Type:: Other * Specify below * Reason for consult:: EtOH withdrawal. Operations: None Procedures: 2-D Echocardiogram, EKG Summary of Care Provided: The patient is a 48 y/o F w/ PMHx: Tobacco use, HTN, Chronic Hepatitis C, Anxiety and Depression, Chronic EtOH Abuse who presented to the [facility] on 07/10/18 as direct admission for acute EtOH withdrawal. Admitted to PCU, labs per OSH, 07/13/18 ongoing hallucinations thus obtained CT head in case of fall while intoxicated, work-up as noted #2, labs w/ mild AST/ALT elevation with hx hepatitis C, increased mildly 07/14/18 from day prior, hepatitis panel pending upon discharge and US liver with chronic changes only, 07/13/18 initiated and continued on [facility] service protocol with taper course of librium instead of only CIWA oral ativan, as Catapres, Bentyl, Vistaril, IV fluids, IV antiemetics, Tylenol as needed for pain. [facility] consulted, planned outpatient vivitrol usage. Patient with hallucinations with alcohol withdrawal as well as suspected secondary to sedate of medications which she was aggressively requesting therefore sedated regimen was discontinued and Librium taper was altered. Given patient ongoing hallucinations obtained CT Head in case of unknown fall or trauma while intoxicated. CT head resulted with concern for possible 6.4 mm lacunar infarct in the posterior left thalamus. Given these findings, obtained MRI Brain w/ mild nonspecific atrophy with no evidence of acute infarct, unremarkable MRA Head and unremarkable MRA Neck, ECHO w/ normal LV systolic function, EF 55%, trivial MDI, trivial TVI, RVSP 23 mmHg. Neurology consulted and also obtained cervical spine MRI w/ no acute fracture or any pathology, status post anterior fusion C5-6, or bulging in the disc at C6-7 and to a lesser extent C4-5 with no evidence for spinal stenosis or cord compression. Continued on asa, moderate dose statin given mild AST/ALT elevations, AM FLP obtained, mag normal, TSH normal pending these evaluations. Patient was frequently asking for sedative regimen therefore all sedative PRN agents removed and her taper altered with complete resolution of hallucinations. During admission did note oral thrush which was treated and regimen continued upon discharge. Patient discharged to continued [facility] treatment protocol outpatient and recommended PCP follow-up as well. DAY OF DISCHARGE PROGRESS NOTE: Subjective: Patient without acute event overnight per self and nursing report. Patient had no further hallucinations following discontinuation of PRN sedated regimen which she had been requesting very aggressively. Patient denies fever, chills, nausea, emesis, abdominal pain, chest pain or dyspnea. Patient agreeable to discharge to home with planned outpatient continue rehab follow-up. Patient will be discharged with follow-up with primary care physician within 3-5 days. Objective: T 97.5, heart 71, BP 105/82, respiratory rate 18, 97% on room air. Physical Examination: General: awake, alert, oriented x 3 and cooperative, seated upright in the bed, NAD, more interactive than prior given hold on sedate of regimen. Skin: normal color, turgor, no icterus, cyanosis. HEENT: AT/NC, EOMI, PERRLA, MMM, improving thrush. Lungs: CTA bilaterally, moderate effort, mild decrease BL bases, no rales, ronchi or wheezing; Heart: Regular rate and rhythm; no gallop, rub audible. Abdomen: soft, NTTP, ND, normal BS. Extremities: no cyanosis, clubbing, or edema. Neurological: patient awake, alert, oriented x 3; cognitive function appears intact upon questioning,; pupils equally reactive to light and accomodation; cranial nerves II-XII grossly normal, moving all 4 extremities, strength mildly to moderately decreased. Psychiatric: affect appears less fatigued, more alert, more interactive, no acute evidence of depressive or anxiety feelings. Assessment and Plan: Please see hospital summary above. Patient Problems: Active and Suspected Problems Alcohol withdrawal (Acute) Numbness (Acute) - Physical Exam Vital Signs Temp Pulse Resp BP Pulse Ox 97.5 F L 71 18 105/82 H 97 07/15/18 08:29 07/15/18 08:29 07/15/18 08:29 07/15/18 08:29 07/15/18 08:20 Oxygen Delivery Method Room Air Weight: 161 lb 13.109 oz Body Mass Index (BMI) 26.1 Intake and Output for Last 24 Hours 07/13/18 07/14/18 07/15/18 23:59 23:59 23:59 Intake Total 1690 / 1690 915 / 915 700 / 700 Balance 1690 / 1690 915 / 915 700 / 700 Laboratory Tests Past 24 Hrs 07/14/18 07/15/18 07/15/18 09:30 05:37 05:37 WBC 5.5 RBC 4.59 Hgb 14.5 Hct 43.9 MCV 95.6 MCH 31.6 MCHC 33.0 RDW 12.4 RDW Differential 42.3 Plt Count 173 MPV 9.9 Immature Gran % (Auto) 0.400 Neut % (Auto) 48.0 Lymph % (Auto) 32.1 [place] % (Auto) 15.1 H Eos % (Auto) 3.3 Baso % (Auto) 1.1 H Absolute Neuts (auto) 2.6 Absolute Lymphs (auto) 1.76 Total Counted Not Reportable Sodium 139 Potassium 4.0 Chloride 105 Carbon Dioxide 26.0 Anion Gap 8 BUN 16 Creatinine 0.84 Estim Creat Clear Calc 76.67 Est GFR (MDRD) Af Amer 93 Est GFR (MDRD) Non-Af 77 BUN/Creatinine Ratio 19.1 Glucose 96 Calcium 9.3 Total Bilirubin 0.40 AST 83 H ALT 83 H Alkaline Phosphatase 64 Total Protein 7.9 Albumin 3.3 Globulin 4.6 H Albumin/Globulin Ratio 0.7 L Hepatitis A IgM Ab Pending Hepatitis A Ab Total Pending Hep Bs Antigen Pending Hep B Core Total Ab Pending Hep B Core IgM Ab Pending Discharge Activity: Return to Normal Activity Weight Bearing Status: Weight bearing as tolerated Call your doctor if you observe: Fever of 101 or Higher, Inability to urinate, Inability to have a bowel movement, Shortness of breath, Dizziness, Fainting spells, Chest pain, Uncontrolled pain Home Medications: Medications to take at Discharge Clonidine HCl [Catapres] 0.1 mg PO TID 07/10/18 Escitalopram Oxalate [Lexapro] 10 mg PO DAILY 07/10/18 Pantoprazole Sodium [Protonix] 40 mg PO DAILY 07/10/18 Folic Acid 1 mg PO DAILY@0800 #30 tab 07/15/18 Multivitamins,Therapeutic [Multivitamin] 1 tab PO DAILYCM #30 tab 07/15/18 Nystatin 500,000 unit PO 4X/DAY #1 bottle 07/15/18 Thiamine Hydrochloride [Vitamin B1] 100 mg PO DAILYCM #30 tab 07/15/18 Following Prescrptions Were Given to Patient: Folic Acid 1 mg PO DAILY@0800 #30 tab Multivitamins,Therapeutic [Multivitamin] 1 tab PO DAILYCM #30 tab Thiamine Hydrochloride [Vitamin B1] 100 mg PO DAILYCM #30 tab Nystatin 500,000 unit PO 4X/DAY #1 bottle Please follow up with your Primary Care Physician in: Follow-up with your primary care physician within 3-5 days. Please Follow Up With: [facility] When: Please continue with next step in [facility] care plan. Patient Instructions: Life After Combat: Coping with Alcohol Abuse, Tips for Quitting Smoking (Cardiovascular), Understanding Hepatitis C (HCV), Treating Hepatitis C (HCV), What Can Cause Depression?, Understanding Alcoholism, Alcoholism: Myths and Facts, The Impact of Alcoholism, Alcoholism: How to be Part of the Solution, Alcoholism: Getting Help, Planning to Quit Smoking, Getting Support for Quitting Smoking, Coping with Smoking Withdrawal Disposition: Home Minutes spent on discharge:: 35 Patient Condition:: Fair Medical Necessity - Tobacco Use Smoking Status: Current every day smoker Tobacco Use: Cigarettes Meaningful Use Info Meaningful Use Diagnoses (Choose all that apply): None applicable Code Visit Inpatient E&M: 38679 Disch Hosp
--- NOTE | 2018-07-15 09:53 | CASEMGMT ---
BURKE called [facility] and scheduled appt for tomorrow July 16. However, [facility] as they require 2 days notice. BURKE then called [facility] back and scheduled for next FridayJuly 21 at 10am. [facility] Farnaz Ashraf was on their way to [facility] pick[facility] patient so BURKE did not have time to arrange transportation for Friday's appt. BURKE gave patient a letter to show the courts that she was in the hospital from July 10 to today July 16. BURKE also wrote down name, address, and phone number for [facility] as well as her appt for next Friday at 10am. BURKE also wrote down [facility] and [facility]'s [facility] ID number. She said she will call to arrange transport for her Friday appt. She left before BURKE could give her a new PCP list. BURKE will mail her one. Viviana COLEMAN MSW
[2018-07-15 09:54] VITALS: BP 121/82; PULSE 91; RESP 18; TEMP 36.6; O2SAT 96
[2018-07-15 12:13] LABS: Hep B Surface Antibodies Non Reactive (.)
== END 2018-07-15 09:56 | disposition home or self-care (01) | DRG 775 ==
LOC: MS3 16:38 → PCU 18:07
PROVIDERS: Physician Assistant; Admitting Provider Hospitalist; Referring Provider Hospitalist; Visit Provider Family Medicine
DX: F10.239 Alcohol dependence with withdrawal, unspecified (principal); F41.9 Anxiety disorder, unspecified; I10 Essential (primary) hypertension; F17.210 Nicotine dependence, cigarettes, uncomplicated; B18.2 Chronic viral hepatitis C; F32.9 Major depressive disorder, single episode, unspecified; K21.9 Gastro-esophageal reflux disease without esophagitis; B37.0 Candidal stomatitis
CPT/HCPCS: 36415; 70450; 70544; 70547; 70551; 72141; 76705; 80053; 80061; 82140; 83036; 83735; 84100; 84443; 85025; 86704; 86705; 86706; 86708; 86709; 86803; 87340; 92610; 93306; 97161; 97166; 99406; J7040; A4216; J3490